=== PATIENT | male | born 1990 | race Two or more races ===

== ENCOUNTER 2017-12-20 10:51 | Inpatient (IN) | END 2017-12-21 20:15 | disposition left against medical advice (07) | DRG 379 ==

== ENCOUNTER 2018-03-08 01:14 | Observation (INO) | END 2018-03-09 13:10 | disposition home or self-care (01) ==

== ENCOUNTER 2018-05-18 03:20 | Inpatient (IN) | payer OTHER ==
[~2018-05-18] VITALS: Ht 180.3 cm; Wt 68.2 kg
[~2018-05-18 03:20] MED LIST: HYOSCYAMINE PO
[2018-05-18 04:30] VITALS: BP 98/56; PULSE 57; RESP 20
[2018-05-18] MEDS ORDERED: morphine 4 MG/ML VIAL IV ONE (05:30)
[2018-05-18 05:54] VITALS: Ht 180.3 cm; Wt 68.2 kg
[2018-05-18] MEDS ORDERED: ONDANSETRON 4 MG INJ IV PRN ×3 (06:00→18:00)
[2018-05-18] MEDS ORDERED: HYDROCODONE/APAP (5/325) TAB PO PRN ×2 (06:00)
[2018-05-18] MEDS ORDERED: NACL 0.9% 3 ML SYG IV SCH (06:00)
[2018-05-18] MEDS ORDERED: HYDROmorphONE 1 MG/ML SYG IV ONE (08:00)
[2018-05-18 08:16] VITALS: BP 103/67; PULSE 59; RESP 18
[2018-05-18] MEDS: FAMOTIDINE 20 MG INJ IV SCH ×2 (08:32→20:52)
[2018-05-18] MEDS: morphine 4 MG/ML VIAL IV PRN (10:19)
[2018-05-18] MEDS ORDERED: TRIMETHOBENZAMIDE 100 MG/ML VIAL IM PRN (15:00)
[2018-05-18] MEDS ORDERED: ONDANSETRON INJ 8 MG in SOD CHLORIDE 0.9% 50 ML IV PRN (15:00)
[2018-05-18] MEDS ORDERED: METOCLOPRAMIDE 10 MG INJ IV PRN (15:00)
[2018-05-18] MEDS: SOD CHLORIDE 0.45% 1,000 ML IV SCH (15:05)
[2018-05-18] MEDS ORDERED: BARIUM SULF 2% 450 ML BTL (BERRY SMOOTHIE) PO ONE (16:00)
[2018-05-18] MEDS ORDERED: IOHEXOL 300MG/ML 150 ML BTL ONE (19:34)
[2018-05-18] MEDS ORDERED: SOD CHLORIDE 0.9% 100 ML ONE (19:34)
[2018-05-18 20:00] VITALS: BP 105/58; PULSE 60; RESP 20
[2018-05-19 02:00] VITALS: BP 103/59; PULSE 61; RESP 17
[2018-05-19] MEDS: SOD CHLORIDE 0.45% 1,000 ML IV SCH (04:30)
[2018-05-19 08:52] VITALS: BP 118/81; PULSE 76; RESP 18
[2018-05-19] MEDS: FAMOTIDINE 20 MG INJ IV SCH (09:05)
[2018-05-19] MEDS: morphine 4 MG/ML VIAL IV PRN (10:34)
--- NOTE | 2018-05-19 12:16 | PN ---
Date/Time of Note Date/Time of Note DATE: 05/18/18 Assessment/Plan VTE Prophylaxis Risk score (from Ns)>0 risk: 1 SCD applied (from Nsg): Yes Pharmacological prophylaxis: other Lines/Catheters IV Catheter Type (from Nrsg): Peripheral IV Urinary Cath still in place: No Assessment/Plan Hospital Course S: Patient still with some nausea symptoms, waiting to be seen by GI team. O: VS - see below PE: Constitutional: alert, oriented Head: atraumatic, normocephalic Neck: non-tender, supple Respiratory: clear to auscultation Cardiovascular: regular rate and rhythm Gastrointestinal: S/ NT / ND / +BS Extremities: no edema, good radial pulses A/P: 28-year-old male who presents with: #Possible GI bleed: Hemoglobin again has been stable -Monitor for now, follow-up occult test and GI recommendations. #Uncontrolled nausea vomiting: Symptoms likely secondary to marijuana use -We will increase the dose of Zofran, add Tigan and Reglan as needed -Follow GI recommendations Result Diagram: 05/19/1842605/19/18426 Results 24hrs Laboratory Tests Test 05/18/18 14:57 05/18/18 22:28 05/19/18 04:27 Hepatitis B Surface Antigen NEGATIVE Hepatitis B Core Total Antibody NEGATIVE Hepatitis C Antibody NEGATIVE Stool Occult Blood NEGATIVE White Blood Count 8.0 # Red Blood Count 3.88 L Hemoglobin 12.3 L Hematocrit 37.4 L Mean Corpuscular Volume 96.4 Mean Corpuscular Hemoglobin 31.7 Mean Corpuscular Hemoglobin Concent 32.9 Red Cell Distribution Width 12.8 Platelet Count 206 Mean Platelet Volume 10.3 Immature Granulocytes % 0.400 Neutrophils % 79.6 H Lymphocytes % 11.8 L Monocytes % 6.9 Eosinophils % 0.9 Basophils % 0.4 Nucleated Red Blood Cells % 0.0 Immature Granulocytes # 0.030 Neutrophils # 6.4 Lymphocytes # 1.0 Monocytes # 0.6 Eosinophils # 0.1 Basophils # 0.0 Nucleated Red Blood Cells # 0.0 Erythrocyte Sedimentation Rate 5 Sodium Level 138 Potassium Level 4.3 Chloride Level 100 Carbon Dioxide Level 30 Anion Gap 8 Blood Urea Nitrogen 6 L Creatinine 0.77 Est Glomerular Filtrat Rate mL/min > 60 Glucose Level 83 Calcium Level 9.6 Phosphorus Level 3.6 Magnesium Level 1.8 Total Bilirubin 0.8 Direct Bilirubin 0.00 Indirect Bilirubin 0.8 Aspartate Amino Transf (AST/SGOT) 117 #H Alanine Aminotransferase (ALT/SGPT) 290 H Alkaline Phosphatase 122 H C-Reactive Protein < 0.5 Total Protein 6.8 Albumin 4.2 Exam/Review of Systems Vital Signs Vitals Vital Signs Date Temp Pulse Resp B/P (MAP) Pulse Ox O2 O2 Flow FiO2 Time Delivery Rate 05/19/18 98.7 76 18 118/81 97 08:52 (93) 05/19/18 Room Air 02:00 Intake and Output 05/18/18 05/18/18 05/19/18 1515:00 23:00 07:00 IntakeIntake Total 694 ml 1955 ml OutputOutput Total 800 ml 1000 ml BalanceBalance -800 ml 694 ml 955 ml Medications Medications Current Medications IV Flush (NS 3 ml) 3 ml PER PROTOCOL IV ; Start 05/18/18 at 06:00 Acetaminophen/ Hydrocodone Bitart ([place] (5/325)) 1 tab Q6H PRN PO MODERATE PAIN LEVEL 4-6; Start 05/18/18 at 06:00 Acetaminophen/ Hydrocodone Bitart ([place] (5/325)) 2 tab Q6H PRN PO SEVERE PAIN LEVEL 7-10; Start 05/18/18 at 06:00 Morphine Sulfate (morphine) 2 mg Q4H PRN IV SEVERE PAIN LEVEL 7-10 Last administered on 05/19/18at 10:34; Admin Dose 2 MG; Start 05/18/18 at 06:00 Famotidine (Pepcid Iv) 20 mg Q12 IV Last administered on 05/19/18at 09:05; Admin Dose 20 MG; Start 05/18/18 at 09:00 Sodium Chloride 1,000 ml @ 75 mls/hr [id number] IV Last administered on 05/19/18at 04:30; Admin Dose 75 MLS/HR; Start 05/18/18 at 15:00 Ondansetron HCl 8 mg/Sodium Chloride 54 ml @ 216 mls/hr Q4H PRN IV NAUSEA AND/OR VOMITING Last administered on 05/18/18at 18:05; Admin Dose 216 MLS/HR; Start 05/18/18 at 15:00 Metoclopramide HCl (Reglan) 10 mg Q6H PRN IV NAUSEA Last administered on 05/18/18at 15:12; Admin Dose 10 MG; Start 05/18/18 at 15:00 Trimethobenzamide HCl (Tigan) 200 mg Q6H PRN IM NAUSEA AND/OR VOMITING; Start 05/18/18 at 15:00 MANISHA LIVINGSTON May 19, 2018 12:16
[2018-05-19] MEDS ORDERED: ONDA4TAB13 PO (12:26)
--- NOTE | 2018-05-19 12:26 | PDOCDIS ---
Discharge Instructions CONDITION [id number] Patient Condition: [id number] Stable HOME CARE INSTRUCTIONS: [id number] Diet Instructions: [id number] Low Fat /Cholesterol ACTIVITY: [id number] Activity Restrictions: [id number] Slowly Increase Activity Rest between Activity Avoid heavy lifting FOLLOW UP/APPOINTMENTS Follow-up Plan Please take your medications as prescribed, see your doctor in the clinic in the next 1 week. MANISHA LIVINGSTON May 19, 2018 12:26
--- NOTE | 2018-05-19 12:33 | DS ---
Date/Time of Note Date/Time of Note DATE: 05/19/18 TIME: 12:27 Discharge Summary Admission/Discharge Info Admit Date/Time May 18, 2018 at 04:23 Discharge Date/Time Discharge Diagnosis Questionable GI bleeding -hemoglobin stable, stool occult test negative IBS-mixed type -improved Likely cyclical vomiting disorder -resolving now marijuana usage -counseled on cessation Mild anemia-mild, stool occult test negative Patient Condition: Stable Procedures CT scan abdomen pelvis: IMPRESSION: Status post cholecystectomy with mild dilatation of the biliary tree. Otherwise no acute abnormality identified within the abdomen and pelvis. Hx of Present Illness 28-year-old male with a history of cyclic vomiting syndrome, rectal bleeding, colitis who initially presented on outside hospital complaining of abdominal pain and rectal bleeding and vomiting. Symptoms similar to previous episodes. Patient continues to smoke marijuana. Patient was admitted here with similar symptoms in November of last year. At that time, per discharge summary, EGD and colonoscopy was negative. Hospital Course The patient was admitted to medical surgical unit. He was placed on antiemetic medications and IV fluids. His hemoglobin remained stable, stool occult test was negative. Over the course of his hospital stay his nausea vomiting symptoms improved. There were no concerning signs of any further upper or lower GI bleeding while he was here. He was seen by GI team during hospital stay and had a CT scan abdomen pelvis performed with no acute findings. He was able to ambulate, tolerated p.o. diet. After getting clearance from the configuration management consultant team he will be discharged home today in improved condition. He will follow up with primary care doctor and GI doctor in the clinic in the next 1-2 weeks. See below for full list of discharge medications. Home Meds Active Scripts Ondansetron Hcl* (Zofran*) 4 Mg Tab, 4 MG PO Q6H PRN for NAUSEA AND OR VOMITING, #30 TAB Prov:MANISHA LIVINGSTON 05/19/18 [Hyoscyamine] 0.125 MG TAB No Conflict Check, 0.125 MG PO Q6 for 14 Days, #30 Prov:CHRISTIE SHARMA MD 03/09/18 Follow-up Plan Please take your medications as prescribed, see your doctor in the clinic in the next 1 week. Primary Care Provider [facility] Time spent on discharge: > 30 minutes Pending Labs Laboratory Tests Test 05/18/18 14:57 05/18/18 22:28 05/19/18 04:27 Hepatitis B Surface NEGATIVE (NEGATIVE) Antigen Hepatitis B Core NEGATIVE (NEGATIVE) Total Antibody Hepatitis C NEGATIVE (NEGATIVE) Antibody Stool Occult Blood NEGATIVE (NEGATIVE ) White Blood Count 8.0 10^3/ul (4.8-10.8) Red Blood Count 3.88 10^6/ul (4.70-6.10 ) Hemoglobin 12.3 g/dl (14.0-18.0) Hematocrit 37.4 % (42.0-52.0) Mean Corpuscular 96.4 Volume fl (82.0-101.0) Mean Corpuscular 31.7 Hemoglobin pg (29.0-33.0) Mean Corpuscular 32.9 Hemoglobin Concent g/dl (32.0-37.0) Red Cell 12.8 % (11.5-14.5) Distribution Width Platelet Count 206 10^3/UL (140-415) Mean Platelet 10.3 fl (7.4-10.4) Volume Immature 0.400 Granulocytes % % (0.001-0.429) Neutrophils % 79.6 % (39.0-77.0) Lymphocytes % 11.8 % (15.0-51.0) Monocytes % 6.9 % (0.0-11.0) Eosinophils % 0.9 % (0.0-7.0) Basophils % 0.4 % (0.0-2.0) Nucleated Red Blood 0.0 Cells % /100WBC (0.0-0.0) Immature 0.030 Granulocytes # 10^3/ul (0.0-0.031 ) Neutrophils # 6.4 10^3/ul (1.6-7.5) Lymphocytes # 1.0 10^3/ul (0.8-2.9) Monocytes # 0.6 10^3/ul (0.3-0.9) Eosinophils # 0.1 10^3/ul (0.0-0.5) Basophils # 0.0 10^3/ul (0.0-0.1) Nucleated Red Blood 0.0 Cells # 10^3/ul (0.0-0.0) Erythrocyte 5 mm/Hr (0-15) Sedimentation Rate Sodium Level 138 mmol/L (135-144) Potassium Level 4.3 mmol/L (3.5-5.1) Chloride Level 100 mmol/L (97-110) Carbon Dioxide 30 mmol/L (21-31) Level Anion Gap 8 (5-13) Blood Urea Nitrogen 6 mg/dl (7-20) Creatinine 0.77 mg/dl (0.61-1.24) Est Glomerular > 60 mL/min (>60) Filtrat Rate mL/min Glucose Level 83 mg/dl (70-220) Calcium Level 9.6 mg/dl (8.4-10.2) Phosphorus Level 3.6 mg/dl (2.5-4.9) Magnesium Level 1.8 mg/dl (1.7-2.5) Total Bilirubin 0.8 mg/dl (0.2-1.3) Direct Bilirubin 0.00 mg/dl (0.00-0.20) Indirect Bilirubin 0.8 mg/dl (0-1.1) Aspartate Amino 117 IU/L (15-46) Transf (AST/SGOT) Alanine 290 IU/L (13-69) Aminotransferase (A LT/SGPT) Alkaline 122 IU/L (42-121) Phosphatase C-Reactive Protein < 0.5 mg/dl (0.0-0.9) Total Protein 6.8 g/dl (6.1-8.1) Albumin 4.2 g/dl (3.3-4.9) MANISHA LIVINGSTON May 19, 2018 12:33
--- NOTE | 2018-05-20 08:10 | PN ---
DATE: 05/18/2018 SUBJECTIVE: The patient, per nursing staff, still having some vomiting symptoms, especially when eat ing. Waiting to be seen by GI team. OBJECTIVE: VITAL SIGNS: Stable. GENERAL: Patient sitting up in bed, answering questions appropriately. No acute distress. HEENT: Pupils equal, round, react to light. Extraocular muscles intact. NECK: Supple, no thyromegaly. LUNGS: Clear to auscultation bilaterally. CARDIOVASCULAR: S1, S2 heard. No rubs or gallops. ABDOMEN: Soft, nontender, nondistended, no rebound or guarding, normal bowel sounds. MUSCULOSKELETAL: No lower extremity edema bilaterally. NEUROLOGIC: No focal deficits. LABORATORY DATA: CBC appears to be normal. Comprehensive metabolic panel is essentially normal exce pt the AST is a little high at 322 and ALT is a little high at 374. ASSESSMENT AND PLAN: A 28-year-old male who presents with questionable lower GI bleeding and vomitin g symptoms with a prior history of cyclic vomiting syndrome, prior rectal bleeding, prior colitis. 1. Questionable gastrointestinal bleed. Hemoglobin appears to be stable. We will follow occult yazmin t, hold all anticoagulants for now. 2. Nausea, vomiting: Symptoms could be secondary to patient's marijuana use. He has had cyclic vom iting syndrome before. So, continue IV fluids, add Reglan as needed and Tigan as needed in addition to Zofran, monitor symptoms. Continue p.o. diet as tolerated. 3. GI prophylaxis, continue H2 raúl. Dictated By: MANISHA STEWART Conf#: [id number] DID#: [id number]
--- NOTE | 2018-05-24 08:28 | HP ---
Date/Time of Note Date/Time of Note DATE: 05/24/18 TIME: 08:26 Assessment/Plan VTE Prophylaxis Risk score (from Nsg)>0 risk: 1 SCD applied (from Nsg): Yes Pharmacological prophylaxis: NA/contraindicated Pharm contraindication: bleeding Lines/Catheters IV Catheter Type (from [facility]): Peripheral IV Urinary Cath still in place: No Assessment/Plan Assessment/Plan 28-year-old male with a history of questionable cyclic vomiting syndrome, rectal bleeding, colitis per CT about 7 months ago initially presented on outside hospital complaining of abdominal pain, nausea/vomiting and rectal bleeding similar to his previous symptoms. He was transferred to [facility] because of insurance reason PLAN -EGD and colonoscopy here 6 months ago was negative -Symptomatic management was antiemetics and pain meds -Monitor H&H closely GI consult HPI/ROS Admit Date/Time Admit Date/Time May 18, 2018 at 04:23 Hx of Present Illness This is a 28-year-old male with a history of questionable cyclic vomiting syndrome, rectal bleeding, colitis per CT about 10 months ago who initially presented on outside hospital complaining of abdominal pain and rectal bleeding and vomiting. Symptoms similar to previous episodes. Patient continues to smoke marijuana, which he said is helping his vomiting. Patient was admitted here with similar symptoms in November of this year. At that time, per discharge summary, EGD and colonoscopy were negative. PMH/Family/Social Past Medical History Medical History: other (see hpi) Coded Allergies: acetaminophen (Verified Allergy, Intermediate, VOMITING, 05/18/18) hydrocodone (Verified Allergy, Intermediate, VOMITING, 05/18/18) Past Surgical History Past Surgical Hx: other (see hpi) Family History Significant Family History: no pertinent family hx Social History Alcohol Use: none Smoking Status: Never smoker Drug Use: marijuana Exam/Review of Systems Exam Constitutional: alert, oriented, well developed Head: normocephalic, atraumatic Eyes: EOMI, PERRL Respiratory: clear to auscultation, normal air movement Cardiovascular: regular rate and rhythm Gastrointestinal: soft Extremities: normal pulses ASA MENDOZA MD May 24, 2018 08:28
== END 2018-05-19 13:50 | disposition home or self-care (01) | DRG 379 ==
LOC: MS1 04:23
PROVIDERS: ADMIT Internal Medicine; ATTEND Hospitalist
DX: K92.2 Gastrointestinal hemorrhage, unspecified (principal); K58.2 Mixed irritable bowel syndrome; G43.A0 Cyclical vomiting, in migraine, not intractable; F12.10 Cannabis abuse, uncomplicated; D64.9 Anemia, unspecified; Z90.49 Acquired absence of other specified parts of digestive tract
CPT/HCPCS: 74177; 80048; 80053; 80076; 82270; 83735; 84100; 85025; 85651; 86038; 86140; 86255; 86704; 86709; 86803; 87340; J1170; J2270; J2405; J2765; Q9967

== ENCOUNTER 2018-06-15 08:43 | Emergency (ER) | payer OTHER ==
[~2018-06-15] VITALS: Ht 175.3 cm; Wt 65.0 kg
[~2018-06-15 08:43] MED LIST changes: +ONDA4TAB13 PO
[2018-06-15 08:44] VITALS: Ht 175.3 cm; Wt 65.0 kg
[2018-06-15] MEDS ORDERED: FAMOTIDINE 20 MG INJ IV STA (08:55)
[2018-06-15] MEDS ORDERED: PANTOPRAZOLE IV 80 MG in SOD CHLORIDE 0.9% 100 ML IVPB STA (08:55)
[2018-06-15] MEDS ORDERED: PANTOPRAZOLE IV 80 MG in SOD CHLORIDE 0.9% 100 ML IV STA (08:55)
[2018-06-15] MEDS ORDERED: SOD CHLORIDE 0.9% 1,000 ML IV STA ×2 (08:55→13:52)
[2018-06-15] MEDS ORDERED: ONDANSETRON 4 MG INJ IV STA ×4 (08:57→13:52)
[2018-06-15] MEDS ORDERED: morphine 4 MG/ML VIAL IV STA (08:57)
[2018-06-15] MEDS ORDERED: HYDROmorphONE 1 MG/ML SYG IV STA ×3 (09:36→13:52)
--- NOTE | 2018-06-15 10:04 | ERD ---
ER Documentation Chief Complaint Chief Complaint abd pain with blood in stool , vomitng blood x 3 days HPI This is a 28-year-old male with a history of cyclic vomiting syndrome and irritable bowel syndrome. The patient presents to the emergency department today stating that for the past 24 hours he has been experiencing epigastric abdominal pain. He states is a burning-like sensation. He has had multiple episodes of emesis. He states that initially the emesis was nonbloody nonbilious. Indicated that just prior to arrival he did have one episode of hematemesis. He stated the vomit was pinkish in color. He denies any melanotic stools but he did state for the past 3 days he had noticed blood coating his stool. He stated it was a minimal amount of bright red blood. He states he had multiple similar episodes that he was told as a result of his colitis. The patient had a recent admission to the hospital on May 19, 2018 roughly 2 weeks prior to arrival. He indicated that he had a colonoscopy and an EGD that were found to be negative. He had been discharged home with oral Zofran but he states he ran out of that medication. Therefore he did not have any antiemetics. The patient has a history of marijuana use but denies any illicit drug use or alcohol use. He denies any recent travel. He said no fevers or shaking or chills. ROS All systems reviewed and are negative except as per history of present illness. Medications Home Meds Active Scripts Ondansetron Hcl* (Zofran*) 4 Mg Tab, 4 MG PO Q6H PRN for NAUSEA AND OR VOMITING, #30 TAB Prov:MANISHA LIVINGSTON 05/19/18 [Hyoscyamine] 0.125 MG TAB No Conflict Check, 0.125 MG PO Q6 for 14 Days, #30 Prov:CHRISTIE SHARMA MD 03/09/18 Allergies Allergies: Coded Allergies: acetaminophen (Verified Allergy, Intermediate, VOMITING, 05/18/18) hydrocodone (Verified Allergy, Intermediate, VOMITING, 05/18/18) PMhx/Soc History of Surgery: Yes (lap-anamaria in the past, B/L foot sx) Anesthesia Reaction: No Hx Neurological Disorder: No Hx Respiratory Disorders: No Hx Cardiac Disorders: No Hx Psychiatric Problems: No Hx Miscellaneous Medical Probl: Yes (IBS; COLITITS) Hx Alcohol Use: No Hx Substance Use: Yes (marijuana use) Hx Tobacco Use: No Smoking Status: Current some day smoker Physical Exam Vitals Vital Signs Date Temp Pulse Resp B/P (MAP) Pulse Ox O2 O2 Flow FiO2 Time Delivery Rate 06/15/18 71 20 124/90 99 Room Air 09:36 (101) 06/15/18 98.1 69 18 131/76 100 08:44 (94) Physical Exam Constitutional:Well-developed. Well-nourished. Patient appeared to be in discomfort secondary to pain HEENT:Normocephalic. Atraumatic.Pupils were equal round reactive to light. Dry mucous membranes.No tonsillar exudates. Neck: No nuchal rigidity. No lymphadenopathy. No posterior cervical spine tenderness or step-offs. Respiratory: Not using accessory muscles of respiration.Lungs were clear to auscultation bilaterally. No rhonchi. No rales. No wheezing. Cardiovascular: Regular rate regular rhythm.No murmurs. No rubs were appreciated.S1, S2 normal. Distal pulses are palpable 2+ bilaterally. GI: Abdomen was soft. Very mild tenderness in the epigastric region. Previous laparoscopic cholecystectomy scar.. Non Distended. No pulsatile abdominal masses or bruits. No rebound. No guarding. Bowel sounds were present and normal. No tenderness in the right lower quadrant over McBurney's point. Psoas sign negative. Obturator sign negative. Rectal: Normal sphincter tone. No gross blood per rectum. Fecal occult blood test negative. No external hemorrhoids. Muscle skeletal: Full range of motion of both the upper and lower extremities bilaterally.Normal muscle tone.No assymetrical calf tenderness or swelling. Skin: No petechia, no purpura. No lesions on the palms or the soles of the feet. No maculopapular rash. NEURO: Patient was alert, awake, orientated x3.No facial droop. Gait observed and normal with no ataxia.Speech had regular rate and rhythm. No focal neurological deficits. Results 24 hrs Laboratory Tests Test 06/15/18 09:25 White Blood Count Pending Red Blood Count Pending Hemoglobin Pending Hematocrit Pending Mean Corpuscular Volume Pending Mean Corpuscular Hemoglobin Pending Mean Corpuscular Hemoglobin Concent Pending Red Cell Distribution Width Pending Platelet Count Pending Mean Platelet Volume Pending Current Medications Medications Dose Sig/Doug Start Time Status Last (Trade) Ordered Route PRN Stop Time Admin Dose Reason Admin Sodium 1,000 ml @ Q1H STAT 06/15/18 06/15/18 Chloride 1,000 mls/hr IV 08:55 09:11 06/15/18 09:54 Famotidine 20 mg ONCE STAT 06/15/18 DC 06/15/18 (Pepcid Iv) IV 08:55 09:05 06/15/18 08:57 Pantoprazole 100 ml @ ONCE STAT 06/15/18 DC 80 mg/Sodium 400 mls/hr IVPB 08:55 Chloride 06/15/18 09:09 Pantoprazole 100 ml @ ONCE STAT 06/15/18 80 mg/Sodium 10 mls/hr IV 08:55 Chloride 06/15/18 18:54 Morphine 4 mg ONCE STAT 06/15/18 DC 06/15/18 Sulfate IV 08:57 09:06 (morphine) 06/15/18 08:58 Ondansetron 4 mg ONCE STAT 06/15/18 DC 06/15/18 HCl (Zofran IV 08:57 09:06 Inj) 06/15/18 08:58 1 mg ONCE STAT 06/15/18 DC Hydromorphone IV 09:36 HCl 06/15/18 09:37 (Dilaudid) Ondansetron 4 mg ONCE STAT 06/15/18 DC HCl (Zofran IV 09:36 Inj) 06/15/18 09:37 Procedures/MDM The patient presented to the emergency department with epigastric pain. My diffe rential diagnosis included but was not limited to abdominal aortic aneurysm, choledocholithiasis, gallstone ileus, renal colic, pyelonephritis, pancreatitis, peptic ulcer disease, atypical myocardical infarction, mesenteric ischemia, GERD, pulmonary infarction. The patient was placed on a residential monitor, continuous pulse oximetry and IV access was established by nursing staff. The patient is given intravenous morphine and Zofran. He stated this did not improve his symptoms. Therefore the patient was given intravenous Dilaudid for analgesia control. An EKG was obtained to rule out myocardial ischemia. There was no elevation of LFTs to suggest ductal obstruction or hepatitis. The patient has also had a previous cholecystectomy. Given that the urinalysis did not show bilirubinuria, my suspicion for common duct obstruction or hepatitis was low. 12 Lead EKG tracing ordered and reviewed by myself showed: Sinus pericardial 49 bpm and no arrhythmia. PA interval normal. QRS duration normal. No ST segment elevation No ST segment depression. No changes consistent with acute ischemia. The patient did complain of an episode of hematemesis. However the patient did have episodes of emesis in the emergency department and this was nonbloody and nonbilious. He was given IV Protonix and IV Pepcid. He was also given antiemetics which included intravenous Zofran. Observation Note: Time: 4 hours Family Hx: No Hypertension Evaluation: Multiple exams showed improving symptoms and no evidence of a significant upper or lower gastrointestinal bleed. Patient had no peritoneal signs on the abdomen and my clinical suspicion was low for ischemic colitis or perforation. Therefore did not feel is necessary to do any diagnostic imaging as I did review previous CT scans that were found to be within normal limits performed in April. The patient was refusing a chest radiograph. His pain had proved. He was able to tolerate oral intakes I did feel could be safely discharged home. The patient also stated he complained of an episode of bright red blood per rectum. I did perform a fecal occult blood test which was negative. The patient had no hemorrhoids and no active rectal bleeding. I did indicate to the patient that the rectal bleeding he had complained of could be result of a colitis but I did feel he was hemodynamically stable and could follow up on an outpatient basis given that the recent EGD and colonoscopy 2 weeks prior to arrival was within normal limits. The patient was discharged home in fair condition. They were instructed to return to the emergency department at any time if there was any worsening of their condition. The patient stated they would follow up with their PCP in the next 24-48 hours to initiate a suitable medication regimen under the care of their PCP as well as to allow their PCP to monitor any drug reactions. The patient was discharged home with prescriptions after they gave informed consent to the new medication. They were also fully informed by myself on the adverse effects and adverse drug interactions in order to provide adequate safeguards to prevent possible adverse reactions to medications. Departure Diagnosis: Primary Impression: Cyclic vomiting syndrome Vomiting Intractability: non-intractable Nausea presence: with nausea Qualified Codes: G43.A0 - Cyclical vomiting, not intractable Additional Impression: Vomiting Vomiting type: unspecified Vomiting Intractability: non-intractable Nausea presence: with nausea Qualified Codes: R11.2 - Nausea with vomiting, unspecified Condition: ROSAMARIA Singleton MD Jun 15, 2018 10:04
[2018-06-15] MEDS ORDERED: ONDA4TAB14 PO (13:05)
[2018-06-15] MEDS ORDERED: METOCLOPRAMIDE 10 MG INJ IV ONE (16:30)
[2018-06-15 16:55] VITALS: BP 128/79; PULSE 74; RESP 18
== END 2018-06-15 17:00 | disposition home or self-care (01) ==
LOC: E/R 08:43
DX: G43.A0 Cyclical vomiting, in migraine, not intractable (principal); F17.210 Nicotine dependence, cigarettes, uncomplicated
CPT/HCPCS: 36415; 80053; 80307; 82150; 83690; 84484; 85025; 85610; 85730; 86850; 86900; 86901; 96374; 96375; 96376; C9113; J1170; J2270; J2405; J2765; J7030; Z7502; Z7610; 93005

== ENCOUNTER 2018-08-14 10:57 | Emergency (ER) | payer OTHER ==
[~2018-08-14] VITALS: Ht 180.3 cm; Wt 75.0 kg
[~2018-08-14 10:57] MED LIST changes: -HYOSCYAMINE PO; +ONDA4TAB14 PO
[2018-08-14 11:03] VITALS: Ht 180.3 cm; Wt 75.0 kg
--- NOTE | 2018-08-14 11:14 | ERD ---
ER Documentation Chief Complaint Chief Complaint EXTREME VOMITTIING AND SEVER ABDPONINAL PAIN STARTED AT 3 AM HPI This 28-year-old male with a history of cyclic vomiting, and recurrent abdominal pain, with multiple prior ED visits who presents for an episode that is similar to previous. He states that he had blood-tinged emesis after multiple bouts of vomiting. He endorses a history of IBS, he has not had a fever, he has not had any urinary symptoms. No chest pain. There are no alleviating or aggravating factors, he states that Dilaudid makes the pain better. ROS All systems reviewed and are negative except as per history of present illness. Medications Home Meds Active Scripts Ondansetron (Ondansetron Odt) 8 Mg Tab.rapdis, 8 MG PO Q6H PRN for NAUSEA AND/OR VOMITING, #10 TAB Prov:NEHAL BURLESON MD 08/14/18 Ondansetron (Ondansetron Odt) 4 Mg Tab.rapdis, 4 MG PO Q6H PRN for NAUSEA AND/OR VOMITING, #30 TAB Prov:ROSAMARIA YING MD 06/15/18 Reported Medications Omeprazole* (Omeprazole*) 20 Mg Capsule.dr, 20 MG PO DAILY, #30 CAP 08/14/18 Peppermint Oil (Ibgard) 90 Mg Capdr...er, 90 MG PO DAILY, CAP 08/14/18 Discontinued Scripts Ondansetron Hcl* (Zofran*) 4 Mg Tab, 4 MG PO Q6H PRN for NAUSEA AND OR VOMITING, #30 TAB Prov:MANISHA LIVINGSTON 05/19/18 Allergies Allergies: Coded Allergies: acetaminophen (Verified Allergy, Intermediate, VOMITING, 08/14/18) hydrocodone (Verified Allergy, Intermediate, VOMITING, 08/14/18) PMhx/Soc History of Surgery: Yes (lap-anamaria in the past, B/L foot sx) Anesthesia Reaction: No Hx Neurological Disorder: No Hx Respiratory Disorders: No Hx Cardiac Disorders: No Hx Psychiatric Problems: No Hx Miscellaneous Medical Probl: Yes (IBS; COLITITS) Hx Alcohol Use: No Hx Substance Use: Yes (marijuana use) Hx Tobacco Use: No Physical Exam Vitals Vital Signs Date Temp Pulse Resp B/P (MAP) Pulse Ox O2 O2 Flow FiO2 Time Delivery Rate 08/14/18 75 18 116/78 100 Room Air 14:03 (91) 08/14/18 55 17 115/78 100 Room Air 13:11 (90) 08/14/18 54 17 154/65 100 Room Air 11:50 (94) 08/14/18 98.5 63 24 143/61 98 11:03 (88) Physical Exam Const: Uncomfortable appearing Head: Atraumatic Eyes: Normal Conjunctiva ENT: Normal External Ears, Nose and Mouth. Neck: Full range of motion. No meningismus. Resp: Clear to auscultation bilaterally Cardio: Regular rate and rhythm, no murmurs Abd: Soft, diffusely tender, no rebound or guarding. Normal bowel sounds Skin: No petechiae or rashes Back: No midline or flank tenderness Ext: No cyanosis, or edema Neur: Awake and alert Psych: Normal Mood and Affect Result Diagram: 08/14/18 1148 08/14/18 1148 Results 24 hrs Laboratory Tests Test 08/14/18 11:48 White Blood Count 20.0 10^3/ul Red Blood Count 4.42 10^6/ul Hemoglobin 13.7 g/dl Hematocrit 42.7 % Mean Corpuscular Volume 96.6 fl Mean Corpuscular Hemoglobin 31.0 pg Mean Corpuscular Hemoglobin Concent 32.1 g/dl Red Cell Distribution Width 13.3 % Platelet Count 284 10^3/UL Mean Platelet Volume 9.6 fl Immature Granulocytes % 0.600 % Neutrophils % 86.7 % Lymphocytes % 7.2 % Monocytes % 5.2 % Eosinophils % 0.0 % Basophils % 0.3 % Nucleated Red Blood Cells % 0.0 /100WBC Immature Granulocytes # 0.110 10^3/ul Neutrophils # 17.3 10^3/ul Lymphocytes # 1.4 10^3/ul Monocytes # 1.0 10^3/ul Eosinophils # 0.0 10^3/ul Basophils # 0.1 10^3/ul Nucleated Red Blood Cells # 0.0 10^3/ul Sodium Level 146 mmol/L Potassium Level 4.0 mmol/L Chloride Level 109 mmol/L Carbon Dioxide Level 23 mmol/L Anion Gap 14 Blood Urea Nitrogen 10 mg/dl Creatinine 0.94 mg/dl Est Glomerular Filtrat Rate mL/min > 60 mL/min Glucose Level 139 mg/dl Calcium Level 10.9 mg/dl Total Bilirubin 0.6 mg/dl Direct Bilirubin 0.00 mg/dl Indirect Bilirubin 0.6 mg/dl Aspartate Amino Transf (AST/SGOT) 123 IU/L Alanine Aminotransferase (ALT/SGPT) 80 IU/L Alkaline Phosphatase 112 IU/L Total Protein 8.6 g/dl Albumin 5.0 g/dl Globulin 3.60 g/dl Albumin/Globulin Ratio 1.38 Lipase 54 U/L Current Medications Medications Dose Sig/Doug Start Time Status Last (Trade) Ordered Route PRN Stop Time Admin Dose Reason Admin Haloperidol 5 mg ONCE ONCE 08/14/18 DC 08/14/18 (Haldol) IV 11:30 11:54 08/14/18 11:31 12.5 mg ONCE ONCE 08/14/18 DC 08/14/18 Diphenhydrami IV 11:30 11:53 ne HCl 08/14/18 11:31 (Benadryl) Morphine 4 mg ONCE STAT 08/14/18 DC 08/14/18 Sulfate IV 11:48 11:53 (morphine) 08/14/18 11:49 Ketamine 23 mg ONCE STAT 08/14/18 DC 08/14/18 HCl IV 12:05 12:16 (Ketamine 08/14/18 12:06 HCl) Procedures/MDM Is a 28-year-old male who presents for evaluation of abdominal pain, as well as vomiting. Patient has had multiple previous episodes in the past, and on exam he had no peritoneal signs, he is afebrile and nontoxic-appearing. His labs did show a leukocytosis, which I suspect mostly likely reactive, however as it was more elevated than his prior visits, I recommended CT abdomen pelvis to assess for intra-abdominal pathology, this is negative. Moderate stool in the rectum was noted, and advised the patient that narcotics could be making his pain worse. His workup was otherwise unremarkable, his pain was controlled in the ED, at discharge the patient was ambulatory and in no distress. EKG: Rate/Rhythm: Normal Sinus Rhythm QRS, ST, T-waves: No changes consistent w/ acute ischemia Impression: No evidence of ischemia or arrhythmia Departure Diagnosis: Primary Impression: Abdominal pain Abdominal location: unspecified location Qualified Codes: R10.9 - Unspecified abdominal pain Additional Impression: Hx of irritable bowel syndrome Condition: Stable NEHAL BURLESON MD Aug 14, 2018 11:14
[2018-08-14] MEDS ORDERED: HALOPERIDOL 5 MG INJ IV ONE (11:30)
[2018-08-14] MEDS ORDERED: DIPHENHYDRAMINE 50 MG INJ IV ONE (11:30)
[2018-08-14] MEDS ORDERED: morphine 4 MG/ML VIAL IV STA (11:48)
[2018-08-14] MEDS ORDERED: OMEP20CA16 PO (12:05)
[2018-08-14] MEDS ORDERED: PEPP90CA PO (12:05)
[2018-08-14] MEDS ORDERED: KETAMINE HCL (50 MG/ML) 1ml syringe IV STA (12:05)
[2018-08-14] MEDS ORDERED: ONDA8TAB14 PO (13:22)
[2018-08-14 14:03] VITALS: BP 116/78; PULSE 75; RESP 18
== END 2018-08-14 14:04 | disposition home or self-care (01) ==
LOC: E/R 10:57
DX: R10.9 Unspecified abdominal pain (principal); Z87.19 Personal history of other diseases of the digestive system
CPT/HCPCS: 36415; 74176; 80053; 83690; 85025; 96374; 96375; J1200; J1630; J2270; Z7502

== ENCOUNTER 2018-08-17 18:08 | Observation (INO) | payer OTHER ==
[~2018-08-17] VITALS: Ht 180.3 cm; Wt 69.7 kg
[~2018-08-17 18:08] MED LIST changes: +OMEP20CA16 PO; -ONDA4TAB13 PO; +ONDA8TAB14 PO; +PEPP90CA PO
[2018-08-17] MEDS ORDERED: KETAMINE HCL (50 MG/ML) 1ml syringe IV STA ×2 (21:38→22:26)
[2018-08-17] MEDS ORDERED: ONDANSETRON 4 MG INJ IV STA (21:38)
[2018-08-17] MEDS ORDERED: SOD CHLORIDE 0.9% 1,000 ML IV STA (21:38)
[2018-08-17] MEDS ORDERED: DICYCLOMINE 20 MG INJ IM ONE (22:00)
--- NOTE | 2018-08-17 22:14 | ERD ---
ER Documentation Chief Complaint Chief Complaint vomiting x 1 day. c/o abdominal pain. was here 2 days ago for same HPI 28-year-old male with a history of cyclic vomiting, irritable bowel syndrome who presents to the emergency room with abdominal pain. Patient was seen here 2 days ago and had a CT that was unremarkable. He has multiple visits for similar symptoms in the past. He describes generalized diffuse abdominal pain that is 10 out of 10 with associated nausea and vomiting. Occasionally he has blood streaked emesis. No melena. He is asking for narcotic pain medication. He does use marijuana though only occasionally. He has had GI follow-up in the past that has been unremarkable with regards to workup per the patient's report. ROS All systems reviewed and are negative except as per history of present illness. Medications Home Meds Active Scripts Metoclopramide* (Reglan*) 10 Mg Tablet, 10 MG PO Q6 PRN for NAUSEA AND/OR VOMITING, #20 TAB Prov:TAMEKA AGUIRRE MD 08/17/18 Dicyclomine HCl (Dicyclomine HCl) 10 Mg Capsule, 10 MG PO TID PRN for ABDOMINAL CRAMPING, #20 CAP Prov:TAMEKA AGUIRRE MD 08/17/18 Ondansetron (Ondansetron Odt) 8 Mg Tab.rapdis, 8 MG PO Q6H PRN for NAUSEA AND/OR VOMITING, #10 TAB Prov:NEHAL BURLESON MD 08/14/18 Ondansetron (Ondansetron Odt) 4 Mg Tab.rapdis, 4 MG PO Q6H PRN for NAUSEA AND/OR VOMITING, #30 TAB Prov:ROSAMARIA YING MD 06/15/18 Reported Medications Omeprazole* (Omeprazole*) 20 Mg Capsule.dr, 20 MG PO DAILY, #30 CAP 08/14/18 Peppermint Oil (Ibgard) 90 Mg Capdr...er, 90 MG PO DAILY, CAP 08/14/18 Discontinued Scripts Ondansetron Hcl* (Zofran*) 4 Mg Tab, 4 MG PO Q6H PRN for NAUSEA AND OR VOMITING, #30 TAB Prov:MANISHA LIVINGSTON 05/19/18 Allergies Allergies: Coded Allergies: acetaminophen (Verified Allergy, Intermediate, VOMITING, 08/14/18) hydrocodone (Verified Allergy, Intermediate, VOMITING, 08/14/18) PMhx/Soc History of Surgery: Yes (lap-anamaria in the past, B/L foot sx) Anesthesia Reaction: No Hx Neurological Disorder: No Hx Respiratory Disorders: No Hx Cardiac Disorders: No Hx Psychiatric Problems: No Hx Miscellaneous Medical Probl: Yes (IBS; COLITITS) Hx Alcohol Use: No Hx Substance Use: Yes (marijuana use) Hx Tobacco Use: No Smoking Status: Never smoker FmHx Family History: No diabetes Physical Exam Vitals Vital Signs Date Temp Pulse Resp B/P (MAP) Pulse Ox O2 O2 Flow FiO2 Time Delivery Rate 08/17/18 98.0 63 16 114/71 100 Room Air 22:15 (85) 08/17/18 98.4 79 18 138/81 100 Room Air 21:38 (100) 08/17/18 98.4 85 18 147/89 100 18:28 (108) Physical Exam General: Tearful Head: Normocephalic, atraumatic. Eyes: Pupils equally reactive, EOM intact ENT: Moist mucous membranes Neck: Supple, no lymphadenopathy Respiratory: Lungs clear bilaterally, no distress Cardiovascular: RRR, no murmurs, rubs, or gallops Abdominal: Soft, inconsistent diffuse abdominal tenderness without localization : Deferred MSK: No edema, no unilateral swelling, 5/5 strength Neurologic: Alert and oriented, moving all extremities, normal speech, no focal weakness, no cerebellar signs Skin: No rash Psych: Normal mood Result Diagram: 08/17/18220808/17/182208 Results 24 hrs Laboratory Tests Test 08/17/18 22:09 White Blood Count 14.3 10^3/ul Red Blood Count 3.76 10^6/ul Hemoglobin 11.9 g/dl Hematocrit 35.5 % Mean Corpuscular Volume 94.4 fl Mean Corpuscular Hemoglobin 31.6 pg Mean Corpuscular Hemoglobin Concent 33.5 g/dl Red Cell Distribution Width 13.0 % Platelet Count 199 10^3/UL Mean Platelet Volume 10.2 fl Immature Granulocytes % 0.400 % Neutrophils % 89.3 % Lymphocytes % 5.8 % Monocytes % 4.3 % Eosinophils % 0.0 % Basophils % 0.2 % Nucleated Red Blood Cells % 0.0 /100WBC Immature Granulocytes # 0.060 10^3/ul Neutrophils # 12.7 10^3/ul Lymphocytes # 0.8 10^3/ul Monocytes # 0.6 10^3/ul Eosinophils # 0.0 10^3/ul Basophils # 0.0 10^3/ul Nucleated Red Blood Cells # 0.0 10^3/ul Sodium Level 141 mmol/L Potassium Level 3.3 mmol/L Chloride Level 102 mmol/L Carbon Dioxide Level 23 mmol/L Anion Gap 16 Blood Urea Nitrogen 11 mg/dl Creatinine 0.75 mg/dl Est Glomerular Filtrat Rate mL/min > 60 mL/min Glucose Level 133 mg/dl Calcium Level 9.9 mg/dl Total Bilirubin 0.7 mg/dl Direct Bilirubin 0.00 mg/dl Indirect Bilirubin 0.7 mg/dl Aspartate Amino Transf (AST/SGOT) 33 IU/L Alanine Aminotransferase (ALT/SGPT) 33 IU/L Alkaline Phosphatase 92 IU/L Total Protein 7.5 g/dl Albumin 4.7 g/dl Globulin 2.80 g/dl Albumin/Globulin Ratio 1.67 Lipase 43 U/L Current Medications Medications Dose Sig/Doug Start Time Status Last (Trade) Ordered Route PRN Stop Time Admin Dose Reason Admin Sodium 1,000 ml @ Q1H STAT 08/17/18 DC 08/17/18 Chloride 1,000 mls/hr IV 21:38 21:49 08/17/18 22:37 Ondansetron 4 mg ONCE STAT 08/17/18 DC 08/17/18 HCl (Zofran IV 21:38 21:49 Inj) 08/17/18 21:39 Ketamine 23 mg ONCE STAT 08/17/18 DC 08/17/18 HCl IV 21:38 21:50 (Ketamine 08/17/18 21:39 HCl) Dicyclomine 10 mg ONCE ONCE 08/17/18 DC 08/17/18 HCl IM 22:00 21:50 (Bentyl) 08/17/18 22:01 Ketorolac 30 mg ONCE STAT 08/17/18 DC 08/17/18 Tromethamine IV 22:26 22:34 (Toradol) 08/17/18 22:29 Ketamine 17 mg ONCE STAT 08/17/18 DC 08/17/18 HCl IV 22:26 23:12 (Ketamine 08/17/18 22:29 HCl) Procedures/MDM LAB INTERPRETATION: I reviewed the laboratory testing and it shows no evidence of acute process MEDICAL DECISION MAKING: The patient has abdominal pain that is very consistent with his chronic abdominal pain. The patient had a CAT scan 2 days ago that was unremarkable. He did have a leukocytosis of 20 likely secondary to stress response. I would not be surprised if the patient has leukocytosis again today. Patient does use marijuana, consider cyclic vomiting syndrome. Delayed gastric emptying is also possibility. The patient is asking for narcotics by name this is concerning for drug-seeking or drug dependence behavior. I would like to avoid narcotic medications if at all possible. I do not believe the patient requires repeat CT imaging as he has had multiple CTs that have been unremarkable. This is consistent with prior exacerbations. Patient will benefit from nonnarcotic medications and fluid resuscitation. ER COURSE: * IV fluids, ketamine, Bentyl provided. Zofran provided. * Patient is asking for more pain medication. A repeat dose of ketamine was pr ovided for a total dose of 40 mg per protocol. Patient given Toradol. * Patient observed sleeping and resting at this time. I do not feel comfortable providing this patient with IV or IM narcotics. I believe this is a disservice to the patient. * At this time the patient is feeling somewhat better and he was offered inpatient versus outpatient management. He would like to go home. I believe this to be reasonable. CONSULTATION: None DISPOSITION PLAN: The patient does not have an identifiable emergent medical condition that warrants inpatient hospitalization at this time. The patient is deemed safe for discharge with outpatient follow-up. We discussed follow up with the patient's primary care doctor within 24 to 48 hours as needed. We also discussed return to the emergency room for worsening symptoms or worsening condition. Outpatient referral: None required Discharge Medications: Reglan and Bentyl Departure Diagnosis: Primary Impression: Cyclic vomiting syndrome Vomiting Intractability: non-intractable Nausea presence: with nausea Qualified Codes: G43.A0 - Cyclical vomiting, not intractable Additional Impressions: Abdominal pain Abdominal location: generalized Qualified Codes: R10.84 - Generalized abdominal pain Hx of irritable bowel syndrome Condition: Stable TAMEKA AGUIRRE MD Aug 17, 2018 22:14
[2018-08-17] MEDS ORDERED: KETOROLAC 30 MG INJ IV STA (22:26)
[2018-08-17] MEDS ORDERED: DICY10CA40 PO (22:51)
[2018-08-17] MEDS ORDERED: METO10TA92 PO (22:51)
[2018-08-18] MEDS ORDERED: DEXTROSE 5%-0.45% NACL 500 ML BAG IV ONE
[2018-08-18] MEDS ORDERED: SOD CHLORIDE 0.9% 1,000 ML IV SCH (01:27)
[2018-08-18] MEDS ORDERED: HYOSCYAMINE 0.125 MG SUBL TAB PO PRN (01:30)
[2018-08-18] MEDS ORDERED: BISACODYL (EC) 5 MG TAB PO PRN (01:30)
[2018-08-18] MEDS ORDERED: ACETAMINOPHEN 325 MG TAB PO PRN (01:30)
[2018-08-18] MEDS ORDERED: ONDANSETRON 4 MG INJ IV PRN ×2 (01:30→05:30)
[2018-08-18] MEDS ORDERED: DOCUSATE SODIUM 100 MG CAP PO PRN (01:30)
[2018-08-18] MEDS ORDERED: METOCLOPRAMIDE 10 MG INJ IV PRN (01:30)
[2018-08-18] MEDS ORDERED: NACL 0.9% 3 ML SYG IV SCH (01:30)
[2018-08-18] MEDS ORDERED: NS + KCL 20 MEQ 1,000 ML IV SCH (01:30)
[2018-08-18 02:35] VITALS: BP 119/58; PULSE 58; RESP 18
[2018-08-18 02:52] VITALS: Ht 180.3 cm; Wt 69.7 kg
[2018-08-18] MEDS ORDERED: DICYCLOMINE 10 MG CAP PO PRN (03:30)
[2018-08-18] MEDS ORDERED: BISACODYL 10 MG SUPP PR PRN (03:30)
[2018-08-18] MEDS ORDERED: HYDROmorphONE 0.5 MG/0.5 ML SYG IV PRN (03:30)
[2018-08-18] MEDS ORDERED: DEXAMETHASONE 4 MG/ML 1 ML INJ IV ONE (03:30)
--- NOTE | 2018-08-18 03:56 | HP ---
Date/Time of Note Date/Time of Note DATE: 08/18/18 TIME: 03:14 Assessment/Plan VTE Prophylaxis SCD applied (from Nsg): Yes Pharmacological prophylaxis: NA/contraindicated Pharm contraindication: low risk/ambulating Lines/Catheters IV Catheter Type (from Nrsg): Saline Lock Assessment/Plan Hospital Course This is a 28-year-old male being admitted to the [facility] floor for: #1Intractable nausea and vomiting: Likely secondary to cyclic vomiting syndrome from cannabinoids. The patient's urine drug screen was positive for cannabis. He also does have IBS however my suspicion is that this is more so related to his cannabis use. PRN Zofran/Reglan. Patient is displaying some drug-seeking b ehavior however given the fact that he does look to be in acute distress with his vomiting will provide him with Dilaudid, we can de-escalate from this once he is under better control. Will obtain an abdominal x-ray to assess for any signs of obstruction, CT scan done within the past few days did not show any acute abnormalities, there were signs of retained stool. #2 IBS: We will give the patient trial of Levsin, will also give the patient MiraLAX as upon recent CT scan of the pelvis there was retained stool. will obtain a abdominal x-ray to further evaluate #3 Leukocytosis: Currently afebrile. No signs of infection. Will continue to trend. Monitor for any signs of infection #4 DVT GI prophylaxis: SCDs, no GI prophylaxis indicated Further treatment strategy will be implemented as per the clinical course. Result Diagram: 08/17/18220808/17/182208 Results 24hrs Laboratory Tests Test 08/17/18 22:09 08/18/18 01:46 White Blood Count 14.3 #H Red Blood Count 3.76 L Hemoglobin 11.9 L Hematocrit 35.5 L Mean Corpuscular Volume 94.4 Mean Corpuscular Hemoglobin 31.6 Mean Corpuscular Hemoglobin Concent 33.5 Red Cell Distribution Width 13.0 Platelet Count 199 # Mean Platelet Volume 10.2 Immature Granulocytes % 0.400 Neutrophils % 89.3 H Lymphocytes % 5.8 L Monocytes % 4.3 Eosinophils % 0.0 Basophils % 0.2 Nucleated Red Blood Cells % 0.0 Immature Granulocytes # 0.060 H Neutrophils # 12.7 H Lymphocytes # 0.8 Monocytes # 0.6 Eosinophils # 0.0 Basophils # 0.0 Nucleated Red Blood Cells # 0.0 Sodium Level 141 Potassium Level 3.3 L Chloride Level 102 Carbon Dioxide Level 23 Anion Gap 16 H Blood Urea Nitrogen 11 Creatinine 0.75 Est Glomerular Filtrat Rate mL/min > 60 Glucose Level 133 Calcium Level 9.9 Total Bilirubin 0.7 Direct Bilirubin 0.00 Indirect Bilirubin 0.7 Aspartate Amino Transf (AST/SGOT) 33 Alanine Aminotransferase (ALT/SGPT) 33 Alkaline Phosphatase 92 Total Protein 7.5 Albumin 4.7 Globulin 2.80 Albumin/Globulin Ratio 1.67 Lipase 43 Urine Color YELLOW Urine Clarity TURBID A Urine pH 9.0 Urine Specific Colp 1.021 Urine Ketones 2+ H Urine Nitrite NEGATIVE Urine Bilirubin NEGATIVE Urine Urobilinogen NEGATIVE Urine Leukocyte Esterase NEGATIVE Urine Microscopic RBC 4 Urine Microscopic WBC 2 Urine Amorphous Crystals MODERATE Urine Mucus FEW A Urine Hemoglobin NEGATIVE Urine Glucose NEGATIVE Urine Total Protein NEGATIVE Urine Opiates Screen Negative Urine Barbiturates Negative Urine Amphetamines Screen Negative Urine Benzodiazepines Screen Negative Urine Cocaine Screen Negative Urine Cannabinoids Positive HPI/ROS Admit Date/Time Admit Date/Time Aug 18, 2018 at 01:28 Hx of Present Illness Chief complaint: Abdominal pain, nausea vomiting times This is a 19-year-old male with a history of cyclic vomiting syndrome and IBS who returned to the emergency department for complaint of abdominal pain nausea vomiting. Patient was seen in the ER on 08/14/2018 with similar symptoms. He had a CT scan of the head and pelvis thousand at that time does not show any acute abnormalities. Patient was discharged home. He did state that he got little better and that his symptoms got worse over the last 2 days which brought him back today. He reports generalized abdominal pain which is 10 out of 10 in intensity. He he does report that he noticed some blood streaking but overall there is no blood in his vomit. He denies use of marijuana he just states that he uses CBD. Patient also requesting pain medications for his abdomen and states that morphine does not help him. Allergies: Acetaminophen, hydrocodone Medications: See MIRANDA AVILA Const: As per HPI Eyes : No pain discharge or redness or change in visual acuity ENT: No pain, sore throat, congestion, congestion, dysphagia or discharge Respiratory: No shortness of breath, cough, sputum, wheezing, or pleuritic pain Cardiovascular: No chest pain, palpitation, PND, or edema GI : As per HPI Genitourinary: No dysuria, hematuria, flank pain , discharge or CVA tenderness Musculoskeletal: No joint pain, back pain, neck pain, restricted range of motion in neck or joints Skin: No rash, bruising or hives Neuro: No headache, dizziness, syncope, seizure, focal weakness Endocrine: No polyuria, polydipsia, temperature intolerance Psych: No hallucination, depression, anxiety or suicidal ideation PMH/Family/Social Past Medical History IBS, colitis, history of cyclic vomiting syndrome Medications Current Medications IV Flush (NS 3 ml) 3 ml PER PROTOCOL IV ; Start 08/18/18 at 01:30 Ondansetron HCl (Zofran Inj) 4 mg Q6H PRN IV NAUSEA/VOMITING Last administered on 08/18/18at 02:48; Admin Dose 4 MG; Start 08/18/18 at 01:30 Metoclopramide HCl (Reglan) 10 mg Q6H PRN IV NAUSEA/VOMITING Last administered on 08/18/18at 03:08; Admin Dose 10 MG; Start 08/18/18 at 01:30 Acetaminophen (Tylenol Tab) 650 mg Q6H PRN PO .PAIN 1-3 OR TEMP; Start 08/18/18 at 01:30 Docusate Sodium (Colace) 100 mg Q12H PRN PO .CONSTIPATION; Start 08/18/18 at 01:30 Bisacodyl (Dulcolax) 5 mg DAILY PRN PO .CONSTIPATION; Start 08/18/18 at 01:30 Potassium Chloride/Sodium Chloride 1,000 ml @ 80 mls/hr [id number] IV ; Start 08/18/18 at 01:30 Hyoscyamine (Levsin (Sl)) 0.125 mg QID PO ; Start 08/18/18 at 09:00 Hydromorphone HCl (Dilaudid) 0.5 mg Q4H PRN IV SEVERE PAIN LEVEL 7-10; Start 08/18/18 at 03:30 Coded Allergies: acetaminophen (Verified Allergy, Intermediate, VOMITING, 08/18/18) hydrocodone (Verified Allergy, Intermediate, VOMITING, 08/18/18) Past Surgical History Cholecystectomy, bilateral foot surgery Past Surgical Hx: other Family History Significant Family History: no pertinent family hx Social History Smoking Status: Current some day smoker Drug Use: marijuana Exam/Review of Systems Vital Signs Vitals Vital Signs Date Temp Pulse Resp B/P (MAP) Pulse Ox O2 O2 Flow FiO2 Time Delivery Rate 08/18/18 98.5 58 18 119/58 99 02:35 (78) 08/18/18 Room Air 01:48 Exam Exam General: Currently sitting upright in bed and in distress from vomiting,. Agitated HEENT: Atraumatic, normocephalic. The pupils are equal, round and reactive. Extraocular motor are intact Neck: Supple with full range of motion. No rigidity or meningismus Chest: Nontender Lungs: Clear to auscultation bilaterally no crackles rales or wheezing Heart: Normal S1-S2, Regular rhythm and rate. No murmur, S3, or S4 Abdomen: Generalized tenderness to palpation, soft, actively having nonbloody nonbilious vomitus. Normal bowel sounds. Neurologic: Normal mental status, speech normal, cranial nerves II through XII are intact, motor and sensory are intact Additional Comments PROCEDURE: CT abdomen and pelvis without contrast. CLINICAL INDICATION: Abdominal pain and hematemesis TECHNIQUE: Continues 2.5 mm axial images were obtained from the domes of the diaphragms to the inferior pubic rami. No oral or intravenous contrast was administered. The calculated dose length product (DLP) = 328.61 mGy-cm. Exam CTDlvol = 5.76 mGy. One or more of the following dose reduction techniques were used: Automated exposure control, adjustment of the mA and or KV according to patient size, or use of iterative reconstruction technique. One or more of the following dose reduction techniques were used: Automated exposure control, ad justment of the mA and or KV according to patient size, or use of iterative reconstruction technique. DICOM images are available. COMPARISON: 05/18/2018 FINDINGS: Lung bases are clear. No pleural pericardial fluid is seen. Gallbladder surgically absent. There is no biliary duct dilatation. Liver, pancreas, spleen, adrenals, and kidneys are within normal limits on this noncontrast study. Is no renal calculi or obstructive uropathy. Aorta is normal in caliber. No pathologically enlarged mesenteric lymph nodes are seen. Stomach and small bowel loops are within normal limits. There is no small bowel dilatation or obstruction. No free fluid, free air, abscess is noted in the upper abdomen CT pelvis: Images through the pelvis demonstrate no free fluid, free air, abscess. Bladder is normally distended grossly unremarkable. Prostate and seminal vesicles are within normal limits. Evaluation of the colon demonstrates no diverticulosis, diverticulitis or acute colitis. There is moderate amount of stool in the rectum. Normal appendix is identified. There are no pathologically enlarged iliac chain lymph nodes. No destructive bony lesions are seen. There is mild superior end plate irregularity of L5 IMPRESSION: 1. No acute inflammatory process, mass, adenopathy. 2. Moderate stool in the rectum. 3. Normal appendix and terminal ileum. 4. status post cholecystectomy RPTAT: HH .Luis Fernando Schultz MD, MD Date Time Electronically viewed and signed by .Luis Fernando Schultz MD, MD on 08/14/2018 12:44 .W/ CC: NEHAL BURLESON MD [id number] WILLIAM BAPTISTE Aug 18, 2018 03:24
[2018-08-18 07:19] VITALS: BP 104/59; PULSE 66; RESP 17
[2018-08-18] MEDS ORDERED: DOCUSATE SODIUM 100 MG CAP PO SCH (09:00)
[2018-08-18] MEDS: HYOSCYAMINE 0.125 MG SUBL TAB PO SCH ×2 (09:00→13:00)
[2018-08-18] MEDS ORDERED: POLYETHYLENE GLYCOL 17 GM PACKET PO SCH (12:00)
[2018-08-18 14:16] VITALS: BP 100/68; PULSE 78; RESP 18
--- NOTE | 2018-08-18 14:45 | PDOCDIS ---
Discharge Instructions CONDITION [id number] Patient Condition: [id number] Stable OTHER ORDERS: Other Orders: 1. Resume home medications. 2. Take a regular diet as tolerated. 3. Resume activities as tolerated 4. Follow-up with your primary care physician in 2 weeks. 5. Please go to the nearest emergency room if you continue to have abdominal pain, persistent nausea/vomiting, or any other unusual signs/symptoms. JUAN STOVALL NP Aug 18, 2018 14:45
--- NOTE | 2018-08-18 15:12 | DS ---
Date/Time of Note Date/Time of Note DATE: 08/18/18 TIME: 15:11 Discharge Summary Admission/Discharge Info Admit Date/Time Aug 18, 2018 at 01:28 Discharge Date/Time Discharge Diagnosis 1. Cyclic vomiting. 2. Marijuana use. 3. Irritable bowel syndrome. 4. Normocytic, normochromic anemia. Patient Condition: Stable Procedures Abdominal X-Ray IMPRESSION: Unremarkable abdomen radiograph. Hx of Present Illness This is a 28-year-old male with past medical history of cyclic vomiting syndrome and irritable bowel syndrome who came to the emergency department complaining of abdominal pain with nausea and vomiting. The patient was seen in the emergency room on 08/04/2018 with similar symptoms. The patient underwent a CT scan of the abdomen and pelvis on 08/14/2018 and was negative for any abnormalities and the patient was discharged home. The patient went home and came back on 08/17/2018 because of similar complaints. In the emergency room, the patient was noticed to have leukocytosis. He was also noticed to have minimal hypokalemia. He was admitted to inpatient setting for further treatment and evaluation. Hospital Course The patient was kept n.p.o. He was started on IV hydration. He was started on antispasmodic medications, prokinetics, and antiemetics. The etiology of the patient's presentation could be most probably secondary to cannabinoid induced hyperemesis. The patient responded well to the treatment strategy. The patient was started on a clear liquid diet and was able to tolerate oral intake without any significant gastrointestinal symptoms. The patient's repeat BMP did not show any evidence of any electrolyte abnormalities. The patient had minimal leukocytosis in the emergency room that resolved with a repeat CBC. The patient is clinically stable to be discharged home, to be followed up with outpatient nurse assessor and gastroenterology. The patient was instructed on the importance of quitting the use of marijuana, that might be the culprit of his recurrent episodes of cyclic vomiting. The patient had a stable hospital course. The patient denied any complaints at the time of discharge. Discharge Instructions 1. Resume home medications. 2. Take a regular diet as tolerated. 3. Resume activities as tolerated 4. Follow-up with your primary care physician in 2 weeks. 5. Please go to the nearest emergency room if you continue to have abdominal pain, persistent nausea/vomiting, or any other unusual signs/symptoms. The patient verbalized understanding of his discharge instructions. The patient was seen in collaboration with Dr. Ramos. Home Meds Active Scripts Metoclopramide* (Reglan*) 10 Mg Tablet, 10 MG PO Q6 PRN for NAUSEA AND/OR V OMITING, #20 TAB Prov:TAMEKA AGUIRRE MD 08/17/18 Dicyclomine HCl (Dicyclomine HCl) 10 Mg Capsule, 10 MG PO TID PRN for ABDOMINAL CRAMPING, #20 CAP Prov:TAMEKA AGUIRRE MD 08/17/18 Ondansetron (Ondansetron Odt) 8 Mg Tab.rapdis, 8 MG PO Q6H PRN for NAUSEA AND/OR VOMITING, #10 TAB Prov:NEHAL BURLESON MD 08/14/18 Ondansetron (Ondansetron Odt) 4 Mg Tab.rapdis, 4 MG PO Q6H PRN for NAUSEA AND/OR VOMITING, #30 TAB Prov:ROSAMARIA YING MD 06/15/18 Reported Medications Omeprazole* (Omeprazole*) 20 Mg Capsule.dr, 20 MG PO DAILY, #30 CAP 08/14/18 Peppermint Oil (Ibgard) 90 Mg Capdr...er, 90 MG PO DAILY, CAP 08/14/18 Discontinued Scripts Ondansetron Hcl* (Zofran*) 4 Mg Tab, 4 MG PO Q6H PRN for NAUSEA AND OR VOMITING, #30 TAB Prov:MANISHA LIVINGSTON 05/19/18 Follow-up Plan Patient to follow-up with his primary care physician in 2 weeks. Primary Care Provider [facility] Time spent on discharge: > 30 minutes Pending Labs Laboratory Tests Test 08/17/18 22:09 08/18/18 01:46 08/18/18 13:51 White Blood Count 14.3 10.3 10^3/ul (4.8-10.8) 10^3/ul (4.8-10.8) Red Blood Count 3.76 3.98 10^6/ul (4.70-6.10) 10^6/ul (4.70-6.10 ) Hemoglobin 11.9 12.4 g/dl (14.0-18.0) g/dl (14.0-18.0) Hematocrit 35.5 % (42.0-52.0) 38.1 % (42.0-52.0) Mean Corpuscular 94.4 95.7 Volume fl (82.0-101.0) fl (82.0-101.0) Mean Corpuscular 31.6 pg (29.0-33.0) 31.2 Hemoglobin pg (29.0-33.0) Mean Corpuscular 33.5 32.5 Hemoglobin Concent g/dl (32.0-37.0) g/dl (32.0-37.0) Red Cell 13.0 % (11.5-14.5) 13.4 % (11.5-14.5) Distribution Width Platelet Count 199 226 10^3/UL (140-415) 10^3/UL (140-415) Mean Platelet 10.2 fl (7.4-10.4) 9.8 fl (7.4-10.4) Volume Immature 0.400 0.600 Granulocytes % % (0.001-0.429) % (0.001-0.429) Neutrophils % 89.3 % (39.0-77.0) 84.5 % (39.0-77.0) Lymphocytes % 5.8 % (15.0-51.0) 10.6 % (15.0-51.0) Monocytes % 4.3 % (0.0-11.0) 4.2 % (0.0-11.0) Eosinophils % 0.0 % (0.0-7.0) 0.0 % (0.0-7.0) Basophils % 0.2 % (0.0-2.0) 0.1 % (0.0-2.0) Nucleated Red Blood 0.0 0.0 Cells % /100WBC (0.0-0.0) /100WBC (0.0-0.0) Immature 0.060 0.060 Granulocytes # 10^3/ul (0.0-0.031) 10^3/ul (0.0-0.031 ) Neutrophils # 12.7 8.7 10^3/ul (1.6-7.5) 10^3/ul (1.6-7.5) Lymphocytes # 0.8 1.1 10^3/ul (0.8-2.9) 10^3/ul (0.8-2.9) Monocytes # 0.6 0.4 10^3/ul (0.3-0.9) 10^3/ul (0.3-0.9) Eosinophils # 0.0 0.0 10^3/ul (0.0-0.5) 10^3/ul (0.0-0.5) Basophils # 0.0 0.0 10^3/ul (0.0-0.1) 10^3/ul (0.0-0.1) Nucleated Red Blood 0.0 0.0 Cells # 10^3/ul (0.0-0.0) 10^3/ul (0.0-0.0) Sodium Level 141 140 mmol/L (135-144) mmol/L (135-144) Potassium Level 3.3 4.0 mmol/L (3.5-5.1) mmol/L (3.5-5.1) Chloride Level 102 mmol/L (97-110) 100 mmol/L (97-110) Carbon Dioxide 23 mmol/L (21-31) 26 mmol/L (21-31) Level Anion Gap 16 (5-13) 14 (5-13) Blood Urea 11 mg/dl (7-20) 8 mg/dl (7-20) Nitrogen Creatinine 0.75 0.72 mg/dl (0.61-1.24) mg/dl (0.61-1.24) Est Glomerular > 60 mL/min (>60) > 60 mL/min (>60) Filtrat Rate mL/min Glucose Level 133 mg/dl (70-220) 92 mg/dl (70-220) Calcium Level 9.9 9.9 mg/dl (8.4-10.2) mg/dl (8.4-10.2) Total Bilirubin 0.7 mg/dl (0.2-1.3) 0.9 mg/dl (0.2-1.3) Direct Bilirubin 0.00 0.00 mg/dl (0.00-0.20) mg/dl (0.00-0.20) Indirect Bilirubin 0.7 mg/dl (0-1.1) 0.9 mg/dl (0-1.1) Aspartate Amino 33 IU/L (15-46) 34 IU/L (15-46) Transf (AST/SGOT) Alanine 33 IU/L (13-69) 21 IU/L (13-69) Aminotransferase (A LT/SGPT) Alkaline 92 IU/L (42-121) 74 IU/L (42-121) Phosphatase Total Protein 7.5 g/dl (6.1-8.1) 7.8 g/dl (6.1-8.1) Albumin 4.7 g/dl (3.3-4.9) 4.8 g/dl (3.3-4.9) Globulin 2.80 g/dl (1.3-3.2) 3.00 g/dl (1.3-3.2) Albumin/Globulin 1.67 1.60 Ratio Lipase 43 U/L (23-300) Urine Color YELLOW (YELLOW) Urine Clarity TURBID (CLEAR) Urine pH 9.0 (5.0-9.0) Urine Specific 1.021 (1.003-1.030 [place] ) Urine Ketones 2+ mg/dL (NEGATIVE) Urine Nitrite NEGATIVE mg/dL (NEGATIVE) Urine Bilirubin NEGATIVE mg/dL (NEGATIVE) Urine Urobilinogen NEGATIVE mg/dL (NEGATIVE) Urine Leukocyte NEGATIVE Mary/ul Esterase Urine Microscopic 4 /HPF (0-5) RBC Urine Microscopic 2 /HPF (0-5) WBC Urine Amorphous MODERATE Crystals /HPF (NONE SEEN) Urine Mucus FEW /HPF (NONE SEEN) Urine Hemoglobin NEGATIVE mg/dL (NEGATIVE) Urine Glucose NEGATIVE mg/dL (NEGATIVE) Urine Total NEGATIVE Protein mg/dl (NEGATIVE) Urine Opiates Negative (NEGATIVE Screen ) Urine Barbiturates Negative (NEGATIVE ) Urine Amphetamines Negative (NEGATIVE Screen ) Urine Negative (NEGATIVE Benzodiazepines ) Screen Urine Cocaine Negative (NEGATIVE Screen ) Urine Cannabinoids Positive (NEGATIVE ) Magnesium Level 2.0 mg/dl (1.7-2.5) JUAN STOVALL NP Aug 18, 2018 15:12
== END 2018-08-18 15:00 | disposition home or self-care (01) ==
LOC: E/R 18:08 → 2NE 08-18 01:28
PROVIDERS: ADMIT Family Medicine; ATTEND Family Medicine
DX: G43.A0 Cyclical vomiting, in migraine, not intractable (principal); F12.10 Cannabis abuse, uncomplicated; K58.9 Irritable bowel syndrome, unspecified; D64.9 Anemia, unspecified
CPT/HCPCS: 36415; 74018; 80053; 80307; 81001; 83690; 83735; 85025; 93005; 96372; 96374; 96375; J0500; J1100; J1170; J1885; J2405; J2765; J3480; J7030; J7999; Z7500; Z7502; Z7610; G0378

== ENCOUNTER 2018-09-20 09:19 | Emergency (ER) | payer OTHER ==
[~2018-09-20] VITALS: Ht 180.3 cm; Wt 70.4 kg
[~2018-09-20 09:19] MED LIST changes: +DICY10CA40 PO; +METO10TA92 PO
[2018-09-20 09:22] VITALS: Ht 180.3 cm; Wt 70.4 kg
--- NOTE | 2018-09-20 10:26 | ERD ---
ER Documentation Chief Complaint Chief Complaint pt is bib self with c/o abd pain and vomiting x 3 days HPI Patient is 28 years old male presenting to the clinic with 3 days history of severe 10 out of 10 intractable abdominal pain with NBNB emesis. Patient reports a history of IBS. Patient admits of bright red stool 2 days ago. Patient reports unable to hold down solids PO and admits to dehydration. Patient admits to having similar symptoms in the past and admits to being seen in [facility]. Patient reports being evaluated by GI specialist who informed patient that he has no medical condition. Patient reports that pain management helped his symptoms the most followed by IV fluids during last event. Patient is requesting pain management for today's visit. ROS All systems reviewed and are negative except as per history of present illness. Medications Home Meds Active Scripts Meloxicam* (Meloxicam*) 7.5 Mg Tablet, 7.5 MG PO DAILY, #30 TAB Prov:MANISH BROWNING PA-C 09/20/18 Ondansetron (Ondansetron Odt) 8 Mg Tab.rapdis, 8 MG PO Q6H PRN for NAUSEA AND/OR VOMITING, #10 TAB Prov:MANISH BROWNING PA-C 09/20/18 Metoclopramide* (Reglan*) 10 Mg Tablet, 10 MG PO Q6 PRN for NAUSEA AND/OR VOMITING, #20 TAB Prov:TAMEKA AGUIRRE MD 08/17/18 Dicyclomine HCl (Dicyclomine HCl) 10 Mg Capsule, 10 MG PO TID PRN for ABDOMINAL CRAMPING, #20 CAP Prov:TAMEKA AGUIRRE MD 08/17/18 Ondansetron (Ondansetron Odt) 8 Mg Tab.rapdis, 8 MG PO Q6H PRN for NAUSEA AND/OR VOMITING, #10 TAB Prov:NEHAL BURLESON MD 08/14/18 Ondansetron (Ondansetron Odt) 4 Mg Tab.rapdis, 4 MG PO Q6H PRN for NAUSEA AND/OR VOMITING, #30 TAB Prov:ROSAMARIA YING MD 06/15/18 Reported Medications Omeprazole* (Omeprazole*) 20 Mg Capsule.dr, 20 MG PO DAILY, #30 CAP 08/14/18 Peppermint Oil (Ibgard) 90 Mg Capdr...er, 90 MG PO DAILY, CAP 08/14/18 Allergies Allergies: Coded Allergies: acetaminophen (Verified Allergy, Intermediate, VOMITING, 08/18/18) hydrocodone (Verified Allergy, Intermediate, VOMITING, 08/18/18) PMhx/Soc History of Surgery: Yes (lap anamaria, bilateral foot surgery) Anesthesia Reaction: No Hx Neurological Disorder: No Hx Respiratory Disorders: No Hx Cardiac Disorders: Yes (palpitation (heart murmurs )) Hx Psychiatric Problems: No Hx Miscellaneous Medical Probl: No Hx Alcohol Use: No Hx Substance Use: Yes (occasional marijuana for pain.) Hx Tobacco Use: Yes (marijuana occasionally) Physical Exam Vitals Vital Signs Date Temp Pulse Resp B/P (MAP) Pulse Ox O2 O2 Flow FiO2 Time Delivery Rate 09/20/18 98.8 68 18 154/92 100 09:22 (112) Physical Exam Const: No acute distress Head: Atraumatic Eyes: Normal Conjunctiva ENT: Normal External Ears, Nose and Mouth. Neck: Full range of motion. No meningismus. Resp: Clear to auscultation bilaterally Cardio: Regular rate and rhythm, no murmurs Abd: Soft, non tender, non distended. Normal bowel sounds Skin: No petechiae or rashes Back: No midline or flank tenderness Ext: No cyanosis, or edema Neur: Awake and alert Psych: Normal Mood and Affect Result Diagram: 09/20/18 1147 09/20/18 1108 Results 24 hrs Laboratory Tests Test 09/20/18 11:08 09/20/18 11:47 Sodium Level 149 mmol/L Potassium Level 4.1 mmol/L Chloride Level 114 mmol/L Carbon Dioxide Level 23 mmol/L Anion Gap 12 Blood Urea Nitrogen 24 mg/dl Creatinine 1.15 mg/dl Est Glomerular Filtrat Rate mL/min > 60 mL/min Glucose Level 108 mg/dl Calcium Level 9.7 mg/dl Total Bilirubin 1.1 mg/dl Direct Bilirubin 0.00 mg/dl Indirect Bilirubin 1.1 mg/dl Aspartate Amino Transf (AST/SGOT) 31 IU/L Alanine Aminotransferase (ALT/SGPT) 38 IU/L Alkaline Phosphatase 92 IU/L Total Protein 7.7 g/dl Albumin 4.7 g/dl Globulin 3.00 g/dl Albumin/Globulin Ratio 1.56 Lipase 32 U/L White Blood Count 11.7 10^3/ul Red Blood Count 3.96 10^6/ul Hemoglobin 12.7 g/dl Hematocrit 38.1 % Mean Corpuscular Volume 96.2 fl Mean Corpuscular Hemoglobin 32.1 pg Mean Corpuscular Hemoglobin Concent 33.3 g/dl Red Cell Distribution Width 13.4 % Platelet Count 216 10^3/UL Mean Platelet Volume 10.1 fl Immature Granulocytes % 0.300 % Neutrophils % 86.3 % Lymphocytes % 8.7 % Monocytes % 4.5 % Eosinophils % 0.0 % Basophils % 0.2 % Nucleated Red Blood Cells % 0.0 /100WBC Immature Granulocytes # 0.040 10^3/ul Neutrophils # 10.1 10^3/ul Lymphocytes # 1.0 10^3/ul Monocytes # 0.5 10^3/ul Eosinophils # 0.0 10^3/ul Basophils # 0.0 10^3/ul Nucleated Red Blood Cells # 0.0 10^3/ul Current Medications Medications Dose Sig/Doug Start Time Status Last (Trade) Ordered Route PRN Stop Time Admin Dose Reason Admin Sodium 500 ml @ Q1H STAT 09/20/18 DC 09/20/18 Chloride 500 mls/hr IV 10:34 11:14 09/20/18 11:33 Ondansetron 4 mg ONCE STAT 09/20/18 DC 09/20/18 HCl (Zofran IV 10:34 11:13 Inj) 09/20/18 10:39 Ketorolac 30 mg ONCE STAT 09/20/18 DC 09/20/18 Tromethamine IV 10:34 11:14 (Toradol) 09/20/18 10:39 Procedures/MDM Patient was evaluated for lower abdominal pain and IBS. Provider reviewed labs, however, imaging was avoided as patient was seen and evaluated for similar symptoms on July 2018. Labs were reviewed and patient was given Toradol IV. Patient states that Toradol did not resolve his pain was requesting something stronger. Patients lab showed leukocytosis and was compared with previous labs. Patient was informed the elevated WBC was due to stress and narcotics may worsen it. Antibiotics were withheld and patient was referred to [employer]. Hypernatremia secondary to dehydration. Patient was given NS IV 500mL. Patient is in stable condition and ready for discharge. Patient is being discharged with Meloxicam and Zofran. ER attending note: Patient presents with what appears to be a recurrence of his cyclic vomiting syndrome. Lab work and exam demonstrate no evidence of appendicitis or other high-risk intra-abdominal causes. Although the patient remains uncomfortable after the Toradol, I am not comfortable with narcotics in the situation given the recurrence and history of the patient. Patient's been reassessed and seems appropriate for outpatient supportive care. Departure Diagnosis: Primary Impression: Cyclic vomiting syndrome Additional Impression: Abdominal pain Patient Instructions: Abdominal Pain Referrals: KAREN KELLEY MD, AHMED PA-C September 20, 2018 10:26 HERACLIO ORDONEZ September 20, 2018 13:32
[2018-09-20] MEDS ORDERED: KETOROLAC 30 MG INJ IV STA (10:34)
[2018-09-20] MEDS ORDERED: SOD CHLORIDE 0.9% 500 ML IV STA (10:34)
[2018-09-20] MEDS ORDERED: ONDANSETRON 4 MG INJ IV STA (10:34)
[2018-09-20] MEDS ORDERED: ONDA8TAB14 PO (12:04)
[2018-09-20] MEDS ORDERED: MELO7.5T38 PO (12:04)
[2018-09-20 13:31] VITALS: BP 135/71; PULSE 65; RESP 18
== END 2018-09-20 14:00 | disposition home or self-care (01) ==
LOC: FTE 09:19
DX: G43.A0 Cyclical vomiting, in migraine, not intractable (principal); Z87.891 Personal history of nicotine dependence
CPT/HCPCS: 80053; 83690; 85025; 96361; 96374; 96375; J1885; J2405; J7040; Z7502

== ENCOUNTER 2018-12-09 12:47 | Emergency (ER) | payer OTHER ==
[~2018-12-09] VITALS: Ht 177.8 cm; Wt 64.1 kg
[~2018-12-09 12:47] MED LIST changes: +CIPR500T4 PO; +LACT1CAP57 PO; +MELO7.5T38 PO; +METR500T PO
[2018-12-09 12:51] VITALS: Ht 177.8 cm; Wt 64.1 kg
[2018-12-09] MEDS ORDERED: morphine 4 MG/ML VIAL IV STA ×2 (13:04→14:15)
[2018-12-09] MEDS ORDERED: ONDANSETRON 4 MG INJ IV STA ×2 (13:04→14:15)
[2018-12-09] MEDS ORDERED: SOD CHLORIDE 0.9% 1,000 ML IV ONE (13:30)
[2018-12-09] MEDS ORDERED: SOD CHLORIDE 0.9% 250 ML IV ONE (13:30)
[2018-12-09] MEDS ORDERED: metroNIDAZOLE 500 MG TAB PO ONE (14:30)
[2018-12-09] MEDS ORDERED: CIPROFLOXACIN 500 MG TAB PO ONE (14:30)
[2018-12-09 17:10] VITALS: BP 136/81; PULSE 57; RESP 18
--- NOTE | 2018-12-09 17:31 | ERD ---
ER Documentation Chief Complaint Chief Complaint abd pain with vomiting x 3 days HPI 28-year-old male presented to ED for left lower quadrant pain bloody diarrhea x3 days. Patient states he has a history of irritable bowel syndrome and this is happened in the past. Patient states he has not been able to take any medication and that he just does not feel that well. Patient denies any allergies to medication and states that he cannot remember the names of his medication he was taking for IBS. Patient rates the pain 10 out of 10 and says it is crampy comes and goes. Patient states he does not want to get a CT scan because every time this happens he ends up in the hospital he gets a scan he said he has multiple scans in the past and they have not found anything except for benign polyps. Patient states that he is only had a couple episodes of bloody diarrhea. ROS All systems reviewed and are negative except as per history of present illness. Medications Home Meds Active Scripts Ondansetron (Ondansetron Odt) 4 Mg Tab.rapdis, 4 MG PO Q6H PRN for NAUSEA AND/OR VOMITING, #10 TAB Prov:ROMEL LEES PA-C 12/09/18 Lactobacillus Rhamnosus* (Culturelle*) 1 Each Cap.sprink, 1 CAP PO BID for 30 Days, CAP Prov:ROMEL LEES PA-C 12/09/18 Metronidazole* (Flagyl*) 500 Mg Tablet, 500 MG PO TID for 7 Days, TAB Prov:ROMEL LEES PA-C 12/09/18 Ciprofloxacin Hcl* (Ciprofloxacin Hcl*) 500 Mg Tablet, 500 MG PO BID for 7 Days, TAB Prov:ROMEL LEES PA-C 12/09/18 Meloxicam* (Meloxicam*) 7.5 Mg Tablet, 7.5 MG PO DAILY, #30 TAB Prov:MANISH BROWNING PA-C 09/20/18 Ondansetron (Ondansetron Odt) 8 Mg Tab.rapdis, 8 MG PO Q6H PRN for NAUSEA AND/OR VOMITING, #10 TAB Prov:MANISH BROWNING PA-C 09/20/18 Metoclopramide* (Reglan*) 10 Mg Tablet, 10 MG PO Q6 PRN for NAUSEA AND/OR VOMITING, #20 TAB Prov:TAMEKA AGUIRRE MD 08/17/18 Dicyclomine HCl (Dicyclomine HCl) 10 Mg Capsule, 10 MG PO TID PRN for ABDOMINAL CRAMPING, #20 CAP Prov:TAMEKA AGUIRRE MD 08/17/18 Ondansetron (Ondansetron Odt) 8 Mg Tab.rapdis, 8 MG PO Q6H PRN for NAUSEA AND/OR VOMITING, #10 TAB Prov:NEHAL BURLESON MD 08/14/18 Ondansetron (Ondansetron Odt) 4 Mg Tab.rapdis, 4 MG PO Q6H PRN for NAUSEA AND/OR VOMITING, #30 TAB Prov:ROSAMARIA YING MD 06/15/18 Reported Medications Omeprazole* (Omeprazole*) 20 Mg Capsule.dr, 20 MG PO DAILY, #30 CAP 08/14/18 Peppermint Oil (Ibgard) 90 Mg Capdr...er, 90 MG PO DAILY, CAP 08/14/18 Allergies Allergies: Coded Allergies: acetaminophen (Verified Adverse Reaction, Intermediate, VOMITING, 12/09/18) hydrocodone (Verified Adverse Reaction, Intermediate, VOMITING, 12/09/18) PMhx/Soc History of Surgery: Yes (lap anamaria, bilateral foot surgery) Anesthesia Reaction: No Hx Neurological Disorder: No Hx Respiratory Disorders: No Hx Cardiac Disorders: Yes (palpitation (heart murmurs )) Hx Psychiatric Problems: No Hx Miscellaneous Medical Probl: No Hx Alcohol Use: No Hx Substance Use: Yes (occasional marijuana for pain.) Hx Tobacco Use: Yes (marijuana occasionally) Smoking Status: Current every day smoker FmHx Family History: No diabetes, No coronary disease, No other Physical Exam Vitals Vital Signs Date Temp Pulse Resp B/P (MAP) Pulse Ox O2 O2 Flow FiO2 Time Delivery Rate 12/09/18 99.0 57 18 136/81 95 Room Air 17:10 (99) 12/09/18 99.3 62 18 124/69 99 12:51 (87) Physical Exam GENERAL: The patient is well-appearing, well-nourished, in no acute distress HEENT: Atraumatic. Conjunctivae are pink. Pupils equal, round, and reactive to light. There is no scleral icterus. Tympanic membranes clear bilaterally. Oropharynx clear. No nystagmus or photophobia. NECK: C-spine is soft and supple. There is no meningismus. There is no cervical lymphadenopathy. CHEST: Clear to auscultation bilaterally. There are no rales, wheezes or rhonchi. HEART: Regular rate and rhythm. No murmurs, clicks, rubs or gallops. ABDOMEN: Left lower quadrant pain BACK: No midline or flank tenderness. Result Diagram: 12/09/18 1316 12/09/18 1316 Results 24 hrs Laboratory Tests Test 12/09/18 13:16 12/09/18 15:51 White Blood Count 15.5 10^3/ul Red Blood Count 4.50 10^6/ul Hemoglobin 13.8 g/dl Hematocrit 43.2 % Mean Corpuscular Volume 96.0 fl Mean Corpuscular Hemoglobin 30.7 pg Mean Corpuscular Hemoglobin Concent 31.9 g/dl Red Cell Distribution Width 13.7 % Platelet Count 244 10^3/UL Mean Platelet Volume 10.4 fl Immature Granulocytes % 0.500 % Neutrophils % 87.2 % Lymphocytes % 4.2 % Monocytes % 7.9 % Eosinophils % 0.0 % Basophils % 0.2 % Nucleated Red Blood Cells % 0.0 /100WBC Immature Granulocytes # 0.070 10^3/ul Neutrophils # 13.5 10^3/ul Lymphocytes # 0.7 10^3/ul Monocytes # 1.2 10^3/ul Eosinophils # 0.0 10^3/ul Basophils # 0.0 10^3/ul Nucleated Red Blood Cells # 0.0 10^3/ul Sodium Level 146 mmol/L Potassium Level 4.1 mmol/L Chloride Level 113 mmol/L Carbon Dioxide Level 24 mmol/L Anion Gap 9 Blood Urea Nitrogen 11 mg/dl Creatinine 0.91 mg/dl Est Glomerular Filtrat Rate mL/min > 60 mL/min Glucose Level 134 mg/dl Calcium Level 10.6 mg/dl Total Bilirubin 0.6 mg/dl Direct Bilirubin 0.00 mg/dl Indirect Bilirubin 0.6 mg/dl Aspartate Amino Transf (AST/SGOT) 32 IU/L Alanine Aminotransferase (ALT/SGPT) 36 IU/L Alkaline Phosphatase 101 IU/L Total Protein 8.4 g/dl Albumin 4.9 g/dl Globulin 3.50 g/dl Albumin/Globulin Ratio 1.40 Lipase 109 U/L Urine Color YELLOW Urine Clarity CLEAR Urine pH 9.0 Urine Specific [place] 1.024 Urine Ketones 1+ mg/dL Urine Nitrite NEGATIVE mg/dL Urine Bilirubin NEGATIVE mg/dL Urine Urobilinogen NEGATIVE mg/dL Urine Leukocyte Esterase NEGATIVE Mary/ul Urine Microscopic RBC 31 /HPF Urine Microscopic WBC 1 /HPF Urine Mucus FEW /HPF Urine Hemoglobin NEGATIVE mg/dL Urine Glucose NEGATIVE mg/dL Urine Total Protein 2+ mg/dl Current Medications Medications Dose Sig/Doug Start Time Status Last (Trade) Ordered Route PRN Stop Time Admin Dose Reason Admin Sodium 250 ml @ Q1H ONCE 12/09/18 Cancel Chloride 250 mls/hr IV 13:30 12/09/18 14:29 Ondansetron 4 mg ONCE STAT 12/09/18 DC 12/09/18 HCl (Zofran IV 13:04 13:26 Inj) 12/09/18 13:08 Morphine 4 mg ONCE STAT 12/09/18 DC 12/09/18 Sulfate IV 13:04 13:27 (morphine) 12/09/18 13:08 Sodium 1,000 ml @ Q1H ONCE 12/09/18 DC 12/09/18 Chloride 1,000 mls/hr IV 13:30 13:26 12/09/18 14:29 500 mg ONCE ONCE 12/09/18 DC 12/09/18 Ciprofloxacin PO 14:30 14:27 (Cipro) 12/09/18 14:31 500 mg ONCE ONCE 12/09/18 DC 12/09/18 Metronidazole PO 14:30 14:27 (Flagyl) 12/09/18 14:31 Ondansetron 4 mg ONCE STAT 12/09/18 DC 12/09/18 HCl (Zofran IV 14:15 14:27 Inj) 12/09/18 14:16 Morphine 4 mg ONCE STAT 12/09/18 DC 12/09/18 Sulfate IV 14:15 14:27 (morphine) 12/09/18 14:16 Procedures/MDM ED course: The patient was stable throughout the ED course. The patient and/or family informed of laboratory and diagnostic imaging results throughout the ED course. Diagnostic imaging: Read by radiologist Dr. Rea PROCEDURE: XR Abdomen. CLINICAL INDICATION: Toxic megacolon. TECHNIQUE: Single view of the abdomen is available for review. COMPARISON: RPTAT: TT FINDINGS: There is a nonobstructive bowel gas pattern. There are no abnormal calcifications overlying the urinary tracts. There are no acute osseous abnormalities. Surgical clips overlying the right upper quadrant, consistent with prior cholecystectomy. IMPRESSION: 1. Nonobstructive bowel gas pattern. 2. No radiographic evidence of toxic megacolon, as questioned. Medications given in ER: Zofran Morphine Cipro Flagyl Patient tolerated medication well with no adverse reactions. Patient reported improvement in pain. Medical decision makin-year-old male with a history of irritable bowel syndrome is presented to ED for bloody diarrhea and 10 out of 10 lower left quadrant pain. Physical exam revealed tenderness to the left lower quadrant on palpation. Patient had no right lower quadrant pain. Patient had 2 episodes of vomiting in the ED he was given IV fluids Zofran and morphine for discomfort. Patient's CBC showed mild leukocytosis, and mild anemia. The patient's lipase was not elevated, UA is unremarkable. The patient information was inputted into the [place] bleeding score and indicated the patient was not at risk for bleeding out. Upon reevaluation the patient appears to be doing much better he states an improvement in pain states that he only still feels nauseous and that he has been dry heaving. Patient will be discharged with prescription for Zofran Cipro and Flagyl. The patient refused a CT scan because he states he is been scanned so many times in the past. I have high suspicion the patient has diverticulitis and I want to treat the patient prophylactically. At this time I have low suspicion for toxic megacolon, appendicitis, sepsis, psoas abscess, acute abdominal emergency, DKA. Patient remained stable throughout his entire ED visit. I advised the patient that if the symptoms worsen he should return to ER immediately. Advised the patient that he is calls primary care provider get an appointment the next 1 to 2 days. Patient is agreement treatment plan and all questions were answered upon discharge. Prescription for home: Zofran Cipro Flagyl Probiotic I have discussed with the patient proper use and common side effects to expert with the medication . I advised the patient/family to speak with the pharmacist dispensing the medication to be advised of any potential drug interactions with other medication or supplements they may be taking. Discharge: At this time, patient is stable for discharge and outpatient management. I have instructed the patient to follow-up with his\her primary care physician in 1 to 2 days. I have discussed with the patient the possibility of needing to see a specialist for further work-up and imaging studies if symptoms persist. I have instructed the patient to promptly return to the ER for any new or worsening symptoms including increased pain, fever, nausea, vomiting, weakness or LOC. The patient and\or family expressed understanding of and agreement with this plan. All questions were answered. Home care instructions were provided. Disclaimer: Inadvertent spelling and grammatical errors are likely due to EHR\dictation software use and do not reflect on the overall quality of patient care. Also, please note that the electronic time recorded on the note does not necessarily reflect the actual time of the patient encounter. Departure Diagnosis: Primary Impression: Abdominal pain Abdominal location: left lower quadrant Qualified Codes: R10.32 - Left lower quadrant pain Additional Impression: Diverticulitis Condition: Stable Patient Instructions: Abdominal Pain, Diverticulitis Referrals: [facility] YOU HAVE RECEIVED A MEDICAL SCREENING EXAM AND THE RESULTS INDICATE THAT YOU DO NOT HAVE A CONDITION THAT REQUIRES URGENT TREATMENT IN THE EMERGENCY DEPARTMENT. FURTHER EVALUATION AND TREATMENT OF YOUR CONDITION CAN WAIT UNTIL YOU ARE SEEN IN YOUR DOCTORS OFFICE WITHIN THE NEXT 1-2 DAYS. IT IS YOUR RESPONSIBILITY TO MAKE AN APPOINTMENT FOR FOL-UP CARE. IF YOU HAVE A PRIMARY DOCTOR --you should call your primary doctor and schedule an appointment IF YOU DO NOT HAVE A PRIMARY DOCTOR YOU CAN CALL OUR PHYSICIAN REFERRAL HOTLINE AT IF YOU CAN NOT AFFORD TO SEE A PHYSICIAN YOU CAN CHOSE FROM THE FOLLOWING [facility] [address] [facility] [place]. [facility] [address] [facility]. [facility] [address] [facility] [facility] [address] [facility] [facility] [address] [facility]. [facility]. [address] [facility]. [facility] YOU HAVE RECEIVED A MEDICAL SCREENING EXAM AND THE RESULTS INDICATE THAT YOU DO NOT HAVE A CONDITION THAT REQUIRES URGENT TREATMENT IN THE EMERGENCY DEPARTMENT. FURTHER EVALUATION AND TREATMENT OF YOUR CONDITION CAN WAIT UNTIL YOU ARE SEEN IN YOUR DOCTORS OFFICE WITHIN THE NEXT 1-2 DAYS. IT IS YOUR RESPONSIBILITY TO MAKE AN APPOINTMENT FOR FOLOW-UP CARE. IF YOU HAVE A PRIMARY DOCTOR --you should call your primary doctor and schedule and appointment IF YOU DO NOT HAVE A PRIMARY DOCTOR YOU CAN CALL OUR PHYSICIAN REFERRAL HOTLINE AT . IF YOU CAN NOT AFFORD TO SEE A PHYSICIAN YOU CAN CHOSE FROM THE FOLLOWING [facility] INSTITUTIONS: [facility] [address] [place] [address] [facility] [address] [place] [address] [facility] [address] [place] [address] Additional Instructions: Call your primary care doctor TOMORROW for an appointment during the next 1-2 days.See the doctor sooner or return here if your condition worsens before your appointment time. ROMEL LEES PA-C Dec 09, 2018 17:31
== END 2018-12-09 17:18 | disposition home or self-care (01) ==
LOC: FTE 12:47
DX: K57.92 Diverticulitis of intestine, part unspecified, without perforation or abscess without bleeding (principal); F17.210 Nicotine dependence, cigarettes, uncomplicated
CPT/HCPCS: 74018; 80053; 81001; 83690; 85025; 93005; 96374; 96375; 96376; J2270; J2405; J7030; Z7502; Z7610; J7040

== ENCOUNTER 2018-12-10 11:52 | Observation (INO) | payer OTHER ==
[~2018-12-10] VITALS: Ht 180.3 cm; Wt 65.7 kg
--- NOTE | 2018-12-10 13:14 | ERD ---
ER Documentation Chief Complaint Chief Complaint pt is bib self with c/o abd pain seen here yesterday for same HPI The patient is a 28-year-old male, presenting to the ER because of persistent abdominal pain for the last 5 days, bloody stool for the last 2 days, denies fever, chills, neck pain, chest pain, dyspnea, dysuria. He was seen in the ER yesterday had extensive work-up, discharged with Cipro and Flagyl. However he is unable to keep any food down and complains of intolerable abdominal pain He smokes marijuana, denies drinking Past medical history: History of inflammatory bowel disease Past surgical history: Cholecystectomy, bilateral foot surgery ROS All systems reviewed and are negative except as per history of present illness. Medications Home Meds Active Scripts Ondansetron (Ondansetron Odt) 4 Mg Tab.rapdis, 4 MG PO Q6H PRN for NAUSEA AND/OR VOMITING, #10 TAB Prov:ROMEL LEES PA-C 12/09/18 Lactobacillus Rhamnosus* (Culturelle*) 1 Each Cap.sprink, 1 CAP PO BID for 30 Days, CAP Prov:ROMEL LEES PA-C 12/09/18 Metronidazole* (Flagyl*) 500 Mg Tablet, 500 MG PO TID for 7 Days, TAB Prov:ROMEL LEES PA-C 12/09/18 Ciprofloxacin Hcl* (Ciprofloxacin Hcl*) 500 Mg Tablet, 500 MG PO BID for 7 Days, TAB Prov:ROMEL LEES PA-C 12/09/18 Discontinued Reported Medications Omeprazole* (Omeprazole*) 20 Mg Capsule.dr, 20 MG PO DAILY, #30 CAP 08/14/18 Peppermint Oil (Ibgard) 90 Mg Capdr...er, 90 MG PO DAILY, CAP 08/14/18 Discontinued Scripts Meloxicam* (Meloxicam*) 7.5 Mg Tablet, 7.5 MG PO DAILY, #30 TAB Prov:MANISH BROWNING PA-C 09/20/18 Ondansetron (Ondansetron Odt) 8 Mg Tab.rapdis, 8 MG PO Q6H PRN for NAUSEA AND/OR VOMITING, #10 TAB Prov:MANISH BROWNING PA-C 09/20/18 Metoclopramide* (Reglan*) 10 Mg Tablet, 10 MG PO Q6 PRN for NAUSEA AND/OR VOMITING, #20 TAB Prov:TAMEKA AGUIRRE MD 08/17/18 Dicyclomine HCl (Dicyclomine HCl) 10 Mg Capsule, 10 MG PO TID PRN for ABDOMINAL CRAMPING, #20 CAP Prov:TAMEKA AGUIRRE MD 08/17/18 Ondansetron (Ondansetron Odt) 8 Mg Tab.rapdis, 8 MG PO Q6H PRN for NAUSEA AND/OR VOMITING, #10 TAB Prov:NEHAL BURLESON MD 08/14/18 Ondansetron (Ondansetron Odt) 4 Mg Tab.rapdis, 4 MG PO Q6H PRN for NAUSEA AND/OR VOMITING, #30 TAB Prov:ROSAMARIA YING MD 06/15/18 Allergies Allergies: Coded Allergies: acetaminophen (Unverified Adverse Reaction, Intermediate, VOMITING, 12/10/18) hydrocodone (Unverified Adverse Reaction, Intermediate, VOMITING, 12/10/18) PMhx/Soc History of Surgery: Yes (lap anamaria, bilateral foot surgery) Anesthesia Reaction: No Hx Neurological Disorder: No Hx Respiratory Disorders: No Hx Cardiac Disorders: Yes (palpitation (heart murmurs )) Hx Psychiatric Problems: No Hx Miscellaneous Medical Probl: No Hx Alcohol Use: No Hx Substance Use: Yes (occasional marijuana for pain.) Hx Tobacco Use: Yes (marijuana occasionally) Physical Exam Vitals Vital Signs Date Temp Pulse Resp B/P (MAP) Pulse Ox O2 O2 Flow FiO2 Time Delivery Rate 12/10/18 79 16 112/62 98 18:56 (79) 12/10/18 64 16 139/87 100 Room Air 16:25 (104) 12/10/18 94 18 118/56 98 Room Air 14:00 (76) 12/10/18 98.3 84 18 139/72 98 12:03 (94) Physical Exam Const: No acute distress. Dehydrated Head: Atraumatic. Eyes: Normal Conjunctiva. ENT: Normal External Ears, Nose and Mouth. Neck: Full range of motion. No meningismus. Resp: Clear to auscultation bilaterally. Cardio: Regular rate and rhythm. Abd: Soft, non distended, normal bowel sounds, diffuse and moderate abdominal tenderness, no rigidity/rebound/CVA tenderness Skin: No petechiae or rashes. Back: No midline or flank tenderness. Ext: No cyanosis, or edema. Neur: Awake and alert. No focal deficit Psych: Normal Mood and Affect. Result Diagram: 12/10/18 1342 12/10/18 1342 Results 24 hrs Laboratory Tests Test 12/10/18 13:42 12/10/18 14:12 White Blood Count 11.7 10^3/ul Red Blood Count 3.92 10^6/ul Hemoglobin 12.6 g/dl Hematocrit 37.5 % Mean Corpuscular Volume 95.7 fl Mean Corpuscular Hemoglobin 32.1 pg Mean Corpuscular Hemoglobin Concent 33.6 g/dl Red Cell Distribution Width 13.4 % Platelet Count 195 10^3/UL Mean Platelet Volume 9.6 fl Immature Granulocytes % 0.300 % Neutrophils % 84.9 % Lymphocytes % 8.3 % Monocytes % 6.3 % Eosinophils % 0.0 % Basophils % 0.2 % Nucleated Red Blood Cells % 0.0 /100WBC Immature Granulocytes # 0.030 10^3/ul Neutrophils # 9.9 10^3/ul Lymphocytes # 1.0 10^3/ul Monocytes # 0.7 10^3/ul Eosinophils # 0.0 10^3/ul Basophils # 0.0 10^3/ul Nucleated Red Blood Cells # 0.0 10^3/ul Sodium Level 142 mmol/L Potassium Level 3.5 mmol/L Chloride Level 107 mmol/L Carbon Dioxide Level 24 mmol/L Anion Gap 11 Blood Urea Nitrogen 15 mg/dl Creatinine 0.99 mg/dl Est Glomerular Filtrat Rate mL/min > 60 mL/min Glucose Level 113 mg/dl Calcium Level 10.1 mg/dl Total Bilirubin 0.8 mg/dl Direct Bilirubin 0.00 mg/dl Indirect Bilirubin 0.8 mg/dl Aspartate Amino Transf (AST/SGOT) 25 IU/L Alanine Aminotransferase (ALT/SGPT) 33 IU/L Alkaline Phosphatase 80 IU/L Total Protein 7.8 g/dl Albumin 4.7 g/dl Globulin 3.10 g/dl Albumin/Globulin Ratio 1.51 Lipase 28 U/L Urine Color YELLOW Urine Clarity CLEAR Urine pH 5.0 Urine Specific [place] 1.036 Urine Ketones 2+ mg/dL Urine Nitrite NEGATIVE mg/dL Urine Bilirubin NEGATIVE mg/dL Urine Urobilinogen NEGATIVE mg/dL Urine Leukocyte Esterase TRACE Mary/ul Urine Microscopic RBC 16 /HPF Urine Microscopic WBC 3 /HPF Urine Mucus MODERATE /HPF Urine Hemoglobin NEGATIVE mg/dL Urine Glucose NEGATIVE mg/dL Urine Total Protein 2+ mg/dl Current Medications Medications Dose Sig/Doug Start Time Status Last (Trade) Ordered Route PRN Stop Time Admin Dose Reason Admin Sodium 1,000 ml @ Q1H ONCE 12/10/18 DC 12/10/18 Chloride 1,000 mls/hr IV 13:30 13:46 12/10/18 14:29 0.5 mg ONCE STAT 12/10/18 DC 12/10/18 Hydromorphone IV 13:30 13:46 HCl 12/10/18 13:33 (Dilaudid) Sodium 100 ml @ ud STK-MED 12/10/18 DC Chloride ONCE .ROUTE 14:42 12/10/18 14:43 Iohexol 150 ml STK-MED 12/10/18 DC (Omnipaque ONCE .ROUTE 14:42 300mg/ ml) 12/10/18 14:43 0.5 mg ONCE STAT 12/10/18 DC 12/10/18 Hydromorphone IV 16:37 16:41 HCl 12/10/18 16:38 (Dilaudid) 150 ml @ ONCE ONCE 12/10/18 DC 12/10/18 Levofloxacin/ 100 mls/hr IVPB 17:00 18:27 Dextrose 12/10/18 18:29 100 ml @ ONCE ONCE 12/10/18 DC 12/10/18 Metronidazole 100 mls/hr IVPB 17:00 17:22 12/10/18 17:59 Potassium 1,000 ml @ Q10H IV 12/10/18 12/10/18 Chloride/Sodi 100 mls/hr 18:08 20:03 um Chloride IV Flush 3 ml PER 12/10/18 (NS 3 ml) PROTOCOL IV 18:30 Ondansetron 4 mg Q6H PRN 12/10/18 HCl (Zofran IV 18:30 Inj) NAUSEA/VOMITI NG 650 mg Q6H PRN 12/10/18 Acetaminophen PO .PAIN 1-3 18:30 (Tylenol OR TEMP Tab) 1 tab Q6H PRN 12/10/18 Acetaminophen PO .MOD PAIN 18:30 / 4-6 Hydrocodone Bitart ([place] (5/325)) Morphine 2 mg Q4H PRN 12/10/18 12/10/18 Sulfate IV .SEVERE 18:30 20:02 (morphine) PAIN 7-10 Zolpidem 5 mg QHS PRN 12/10/18 Tartrate PO .INSOMNIA 18:30 (Ambien) Procedures/MDM [place] [id number] [place] [id number] Radiology Main Line: [phone] DIAGNOSTIC IMAGING REPORT Patient: MO LEMUS : 1990 Age: 28 Sex: M MR #: [id number] DOS: 12/10/18 1330 Ordering MD: MO DUARTE MD Location: E/R Room/Bed: PROCEDURE: CT ABDOMEN AND PELVIS WITH IV CONTRAST. CLINICAL INDICATION: Abdominal pain TECHNIQUE: CT scan of the abdomen and pelvis with contrast was performed on a multidetector high-resolution CT scanner following the use of IV contrast. 90 cc Omnipaque-300 was administered. Coronal and sagittal reformatted images were obtained from the axial source images. Images were reviewed on a high-resolution PACS workstation. The total exam CTDI equals 5.5 mGy and the total exam DLP equals 312 mGy-cm. One or more of the following dose reduction techniques were used: Automated exposure control. Adjustment of the mA and/or kV according to patient size. Use of iterative reconstruction technique. DICOM images are available. COMPARISON: CT 08/14/2018 FINDINGS: CT abdomen: The lung bases are clear. The heart size is within normal limits. There is no significant pericardial effusion. Hepatic morphology is within normal limits. No gross contour deforming masses. The gallbladder is not visualized. Status post cholecystectomy . There is intrahepatic dilatation . Common bile duct is normal size. The spleen and pancreas are within normal limits. Both adrenal glands are within normal limits. Both kidneys are in normal anatomic position. No evidence of obstruction or hydronephrosis. No gross renal/ureteric calculi. The visualized GI tract demonstrates normal caliber loops of small and large bowel. No obstruction. Stool filled loops of large bowel suggestive of constipation. The appendix is within normal limits. The aorta is unremarkable. No significant retroperitoneal lymphadenopathy. CT pelvis: Bladder is within normal limits. Prostate is normal size. Rectosigmoid colon demonstrates stool. No significant free fluid. No significant pelvic lymph adenopathy. The visualized osseous structures, appears to be within normal limits. IMPRESSION: 1. No evidence of acute intra-abdominal/pelvic inflammatory process. No evidence of bowel obstruction. The appendix is within normal limits. 2. Status post cholecystectomy. Mild intrahepatic biliary dilatation. Findings can be within normal limits post cholecystectomy. 3. No evidence of obstruction hydronephrosis within both kidneys. 4. No evidence of free fluid or free air. No gross focal fluid collections. RPTAT: AAPP Physician Tamar Date Time Electronically viewed and signed by Physician Tamar on 12/10/2018 15:38 JL/ CC: MO DUARTE MD [id number] MEDICAL MAKING DECISION: The patient is a 38-year-old male, presenting with intractable abdominal pain, treated with 1 L normal saline for acute dehydration, Dilaudid 0.5 mg IV x2 for pain, Levaquin IV and Flagyl IV empirically The differential diagnoses considered include but are not limited to cholelithiasis, cholecystitis, choledocholithiasis, cholangitis, pancreatitis, hepatitis, gastritis, peptic ulcer disease, gastric ulcer, appendicitis, cystitis, diverticulitis, partial small bowel obstruction. Departure Diagnosis: Primary Impression: Intractable abdominal pain Additional Impression: Anemia Condition: Stable Comments I discussed the findings with the patient. I notified the patient with Dr. Jaime at [facility] [employer] who was made aware of the lab, the treatment, the patient condition. The patient is admitted to [facility] Disclaimer: Inadvertent spelling and grammatical errors are likely due to EHR/dictation software use and do not reflect on the overall quality of patient care. Also, please note that the electronic time recorded on this note does not necessarily reflect the actual time of the patient encounter. MO DUARTE MD Dec 10, 2018 13:14
[2018-12-10] MEDS ORDERED: SOD CHLORIDE 0.9% 1,000 ML IV ONE (13:30)
[2018-12-10] MEDS ORDERED: HYDROmorphONE 0.5 MG/0.5 ML SYG IV STA ×2 (13:30→16:37)
[2018-12-10] MEDS ORDERED: SOD CHLORIDE 0.9% 100 ML ONE (14:42)
[2018-12-10] MEDS ORDERED: IOHEXOL 300MG/ML 150 ML BTL ONE (14:42)
[2018-12-10] MEDS ORDERED: metroNIDAZOLE 500 MG/NS (PMX) 100 ML IVPB ONE (17:00)
[2018-12-10] MEDS ORDERED: LEVOFLOXACIN 750MG/D5W (PMX) 150 ML IVPB ONE (17:00)
[2018-12-10] MEDS ORDERED: 1/2 NS + KCL 20 MEQ 1,000 ML IV SCH (18:08)
[2018-12-10] MEDS ORDERED: NACL 0.9% 3 ML SYG IV SCH (18:30)
[2018-12-10] MEDS ORDERED: ACETAMINOPHEN 325 MG TAB PO PRN (18:30)
[2018-12-10] MEDS ORDERED: HYDROCODONE/APAP (5/325) TAB PO PRN (18:30)
[2018-12-10] MEDS ORDERED: ZOLPIDEM 5 MG TAB PO PRN (18:30)
[2018-12-10] MEDS ORDERED: ONDANSETRON 4 MG INJ IV PRN (18:30)
--- NOTE | 2018-12-10 19:05 | HP ---
Date/Time of Note Date/Time of Note DATE: 12/10/18 TIME: 19:02 Assessment/Plan VTE Prophylaxis SCD applied (from Nsg): Yes Pharmacological prophylaxis: NA/contraindicated Pharm contraindication: low risk/ambulating Lines/Catheters IV Catheter Type (from Nrsg): Saline Lock Assessment/Plan Hospital Course 1. Cyclic vomiting secondary to IBS and/or marijuana use Patient states that he was diagnosed with IBD at this hospital but last colonoscopy in 2018 showed no such thing Start clears IV fluids 2. Normocytic, normochromic anemia Monitor Prophylaxis: SCDs Result Diagram: 12/10/18 1342 12/10/18 1342 Results 24hrs Laboratory Tests Test 12/10/18 13:42 12/10/18 14:12 White Blood Count 11.7 #H Red Blood Count 3.92 L Hemoglobin 12.6 L Hematocrit 37.5 L Mean Corpuscular Volume 95.7 Mean Corpuscular Hemoglobin 32.1 Mean Corpuscular Hemoglobin Concent 33.6 Red Cell Distribution Width 13.4 Platelet Count 195 # Mean Platelet Volume 9.6 Immature Granulocytes % 0.300 Neutrophils % 84.9 H Lymphocytes % 8.3 L Monocytes % 6.3 Eosinophils % 0.0 Basophils % 0.2 Nucleated Red Blood Cells % 0.0 Immature Granulocytes # 0.030 Neutrophils # 9.9 H Lymphocytes # 1.0 Monocytes # 0.7 Eosinophils # 0.0 Basophils # 0.0 Nucleated Red Blood Cells # 0.0 Sodium Level 142 Potassium Level 3.5 Chloride Level 107 Carbon Dioxide Level 24 Anion Gap 11 Blood Urea Nitrogen 15 Creatinine 0.99 Est Glomerular Filtrat Rate mL/min > 60 Glucose Level 113 Calcium Level 10.1 Total Bilirubin 0.8 Direct Bilirubin 0.00 Indirect Bilirubin 0.8 Aspartate Amino Transf (AST/SGOT) 25 Alanine Aminotransferase (ALT/SGPT) 33 Alkaline Phosphatase 80 Total Protein 7.8 Albumin 4.7 Globulin 3.10 Albumin/Globulin Ratio 1.51 Lipase 28 Urine Color YELLOW Urine Clarity CLEAR Urine pH 5.0 Urine Specific [place] 1.036 H Urine Ketones 2+ H Urine Nitrite NEGATIVE Urine Bilirubin NEGATIVE Urine Urobilinogen NEGATIVE Urine Leukocyte Esterase TRACE A Urine Microscopic RBC 16 H Urine Microscopic WBC 3 Urine Mucus MODERATE Urine Hemoglobin NEGATIVE Urine Glucose NEGATIVE Urine Total Protein 2+ H HPI/ROS Admit Date/Time Admit Date/Time December 10, 2018 Hx of Present Illness Patient is a 28-year-old male with a history of IBS with cyclical vomiting secondary to marijuana use. Patient has had multiple hospitalizations with a colonoscopy that was essentially negative in 2018. Patient presents once again with vomiting, patient states that he was diagnosed with inflammatory bowel disease at this hospital but there is no such findings on previous colonoscopy. Patient has no other complaints at this time. ROS Constitutional: no complaints, improved Eyes: no complaints ENT: no complaints Respiratory: no complaints Cardiovascular: no complaints Gastrointestinal: vomiting Genitourinary: no complaints Musculoskeletal: no complaints Skin: no complaints Neurologic: no complaints Endocrine: no complaints Lymphatic: no complaints Psychological: no complaints, nl mood/affect Immunologic: no complaints PMH/Family/Social Past Medical History As per HPI Medications Current Medications Potassium Chloride/Sodium Chloride 1,000 ml @ 100 mls/hr Q10H IV ; Start 12/10/18 at 18:08 IV Flush (NS 3 ml) 3 ml PER PROTOCOL IV ; Start 12/10/18 at 18:30 Ondansetron HCl (Zofran Inj) 4 mg Q6H PRN IV NAUSEA/VOMITING; Start 12/10/18 at 18:30 Acetaminophen (Tylenol Tab) 650 mg Q6H PRN PO .PAIN 1-3 OR TEMP; Start 12/10/18 at 18:30 Acetaminophen/ Hydrocodone Bitart ([place] (5/325)) 1 tab Q6H PRN PO .MOD PAIN 4- 6; Start 12/10/18 at 18:30 Morphine Sulfate (morphine) 2 mg Q4H PRN IV .SEVERE PAIN 7-10; Start 12/10/18 at 18:30 Zolpidem Tartrate (Ambien) 5 mg QHS PRN PO .INSOMNIA; Start 12/10/18 at 18:30 Coded Allergies: acetaminophen (Unverified Adverse Reaction, Intermediate, VOMITING, 12/10/18) hydrocodone (Unverified Adverse Reaction, Intermediate, VOMITING, 12/10/18) Past Surgical History Past Surgical Hx: other Family History Significant Family History: no pertinent family hx Social History Alcohol Use: rarely Smoking Status: Light tobacco smoker Drug Use: marijuana Exam/Review of Systems Vital Signs Vitals Vital Signs Date Temp Pulse Resp B/P (MAP) Pulse Ox O2 O2 Flow FiO2 Time Delivery Rate 12/10/18 79 16 112/62 98 18:56 (79) 12/10/18 Room Air 16:25 12/10/18 98.3 12:03 Exam Constitutional: alert, oriented Respiratory: clear to auscultation Cardiovascular: regular rate and rhythm Gastrointestinal: soft; No distended Musculoskeletal: nl extremities to inspection JARRETT ROMERO Dec 10, 2018 19:05
[2018-12-10] MEDS: morphine 2 MG INJ IV PRN (20:02)
[2018-12-10 21:24] VITALS: Ht 180.3 cm; Wt 65.7 kg
[2018-12-10 21:49] VITALS: BP 113/71; PULSE 57; RESP 18
[2018-12-11] MEDS: morphine 2 MG INJ IV PRN (00:17)
== END 2018-12-11 01:17 | disposition left against medical advice (07) ==
LOC: E/R 11:52 → MS3 17:11 → CANRESERV 19:57 → MS1 21:43
PROVIDERS: ADMIT Internal Medicine; ATTEND Internal Medicine
DX: K58.9 Irritable bowel syndrome, unspecified (principal); F12.10 Cannabis abuse, uncomplicated; D64.9 Anemia, unspecified
CPT/HCPCS: 36415; 74177; 80053; 81001; 83690; 85025; 96374; 96376; J1170; J1956; J2270; J3480; J7030; Q9967; Z7500; Z7502; Z7610; G0378